=== PATIENT | male | born 1940 | race Caucasian/White ===

== ENCOUNTER 2021-11-11 02:38 | Emergency (ER) | payer MEDICARE, OTHER, SELFPAY ==
[2021-11-11 02:44] VITALS: BP 165/92; BP 173/84; PULSE 84; RESP 18; TEMP 37.1; O2SAT 98; BMI 29.7
--- NOTE | 2021-11-11 03:26 | ED_ITS ---
HPI - Male Genitourinary General Chief complaint: Urogenital-Male Stated complaint: unable to urinate Time Seen by Provider: 11/11/21 03:16 Source: patient and EMS Mode of arrival: EMS Limitations: no limitations History of Present Illness HPI Narrative: Patient comes to the emergency room complaining of 5 hours of being unable to urinate. Patient states that he was recently seen by his urologist, prescribed by urinary anti spasmodic (trospium). Patient states that he have suprapubic discomfort. Patient has been diagnosed with BPH, denies being on any blood thinners. Related Data Previous Rx's Medication Instructions Recorded tamsulosin 0.4 mg capsule (Flomax) 0.4 mg PO DAILY #7 caps 11/11/21 Allergies Allergy/AdvReac Type Severity Reaction Status Date / Time allopurinol [Allopurinol] Allergy Severe HIVES, rash Unverified 12/06/19 15:30 oxycodone [Oxycodone] AdvReac Intermediate NAUSEA & Unverified 12/06/19 15:30 VOMITING Review of Systems Review of Systems: Constitutional : No Weight loss, No Fever, No Chills, No Night Sweats, No Fatigue, No Malaise ENT/Mouth : No Hearing loss, No Ear Pain, No Nasal Congestion, No Sinus Pain, No Hoarseness, No sore throat, No Rhinorrhea, No Swallowing Difficulty Eyes: No Eye Pain, No Swelling, No Redness, No Foreign Body, No Discharge, No Vision Changes Cardiovascular : No Chest Pain, No SOB, No Dyspnea on Exertion, No Orthopnea, No Edema, No Palpitations Respiratory : No Cough, No Sputum, No Wheezing, No Smoke Exposure, No Dyspnea Gastrointestinal : No Nausea, No Vomiting, No Diarrhea, No Constipation, No abdominal Pain, No Hematochezia, No Melena Genitourinary : Complaining of urinary retention for 5 hours, No Dysuria, No Urinary Frequency, No Hematuria, No Urinary Incontinence, No Urgency, No Flank Pain, No Urinary Flow Changes, No Hesitancy Musculoskeletal : No joint pain, No Myalgias, No Joint Swelling Skin : No Skin Lesions, No rash Neuro : No Weakness, No Numbness, No Paresthesias, No Loss of Consciousness, No Dizziness, No Headache Psych : No Anxiety/Panic, No Depression, No SI/HI/AH/VH, No Social Issues, Heme/Lymph: No Bruising, No Bleeding,No Lymphadenopathy Endocrine : No Polyuria, No Polydipsia, No Temperature Intolerance [facility] Past Medical History Medical History (Updated 11/11/21 @ 03:29 by Stefania Chand MD) BPH (benign prostatic hyperplasia) Physical Exam Vital Signs: Vital Signs: Last Vital Signs Temp 98.7 F 11/11/21 02:44 Pulse 84 11/11/21 02:44 Resp 18 11/11/21 02:44 BP 165/92 H 11/11/21 02:44 Pulse Ox 98 11/11/21 02:44 O2 Del Method 11/11/21 02:44 BMI result Body Mass Index 29.7 Const: Other: Appearance: Alert. Oriented X3. No acute distress. Eyes: Pupils equal, round and reactive to light. ENT: Pharynx normal. Neck: Normal inspection. Neck supple. No lymph nodes noted. No crepitus CVS: Normal heart rate and rhythm. Pulses normal. Normal S1 and S2 Respiratory: No respiratory distress. Breath sounds normal. No Wheezing. No rales Abdomen: Soft and nontender. No rigidity. No distention. Bladder scan shows more than 800 mL of urine bladder Skin: Skin warm and dry. Normal skin color. Normal skin turgor. Extremities: No lower extremity edema. No Lacerations. No Rash Neuro: Oriented X 3. No motor deficit. No sensory deficit. Moving all extremities. No slurred speech. CN 2 through 12 grossly intact Psych: calm, cooperative, normal affect Course Course Course Narrative: López catheter was inserted. Martín blood started to come out, patient's bladder was manually irrigated with 2 L, the urine cleared. No UTI. I discussed with the patient that the López catheter needs to stay in for 2 days and he needs to follow-up with his urologist. MDM - Male Genitourinary Lab Data Labs: Lab Results 11/11/21 Range/Units 04:03 Urine Color RED Urine Appearance Cloudy Urine pH 8.0 (5.0-8.0) Ur Specific [place] 1.015 (1.005-1.025) Urine Protein 300 (3+) H (Neg-Trace) mg/dL Urine Glucose (UA) Negative (Negative) mg/dL Urine Ketones 15 (Negative) mg/dL Urine Blood Large (3+) H (Negative) Urine Nitrite Negative (Negative) Ur Leukocyte Esterase Small (1+) H (Negative) Urine RBC >20 H (0-2) /HPF Urine WBC 0-5 (0-5) /HPF Ur Squamous Epith Cells 0-2 (0-2) /HPF Urine Bacteria 1+ (None Seen) Hyaline Casts Not Reportable Discharge Plan Discharge Clinical Impression: Acute urinary retention Patient Disposition: Home, Self-Care Instructions: Urinary Retention in Men (ED) Additional Instructions: Your López catheter needs to be removed in 48 hours. You may come to the emergency room to have it removed, or ideally, follow-up with your urologist. Please follow-up with your primary care physician tomorrow. If you have any worsening or new symptoms, please return to the emergency room or call 911 Prescriptions: New tamsulosin [Flomax] 0.4 mg capsule 0.4 mg PO DAILY Qty: 7 0RF
--- NOTE | 2021-11-11 03:46 | PC.NURSE ---
Patient arrived to ED [facility] in a stretcher bed. patient reports he was not able to urinate since 10 pm. Patient complaining feeling distention and discomfort in suprapubic area. patient reports he started taking Oxybutynin 20 mg daily few days ago-prescribed by Dr. Kirkpatrick-urologist. Pt's bladder scanned-revealed 892 mL of urine in pt's bladder. F/C [address] Chand order-balloon inflated with 10 ml of sterile water-bright, red blood noted flowing into F/C bag after balloon inflation. Dr. Chand notified-MD performed F/C irrigation at bedside with light, pink urine return noted.
[2021-11-11 04:16] LABS: Appearance Urine Cloudy; Glucose Urine UA Negative (Negative); Leukocyte Esterase Urine Small (1+) (Negative); Specific Gravity - Urine 1.015 (1.005-1.025); Urine Blood Large (3+) (Negative); Urine Ketones 15 mg/dL (Negative); Urine Protein 300 (3+) mg/dL (Neg-Trace)
[2021-11-11 04:20] LABS: Color Urine RED
[2021-11-11 04:21] LABS: Nitrite Urine Negative (Negative)
[2021-11-11 04:22] LABS: Bacteria Urine 1+ (None Seen); RBC Urine >20 /HPF (0-2); Squamous Epithelial Cell Urine 0-2 /HPF (0-2); UACC Culture Trigger YES; WBC Urine 0-5 /HPF (0-5)
== END 2021-11-11 07:37 | disposition home or self-care (01) ==
PROVIDERS: Emergency Provider Emergency Medicine
DX: R33.9 Retention of urine, unspecified (principal)
CPT/HCPCS: 81001; 87086; 99284

== ENCOUNTER 2021-11-11 09:43 | Inpatient (IN) | payer MEDICARE, OTHER, SELFPAY ==
[2021-11-11 09:46] VITALS: BP 149/95; PULSE 100; RESP 19; TEMP 36.1; O2SAT 98; BMI 29.5
--- NOTE | 2021-11-11 14:53 | ED.MALEGU ---
HPI - Male Genitourinary General Chief complaint: Urogenital-Male Stated complaint: bleeding thru cathier Time Seen by Provider: 11/11/21 13:41 Source: patient Mode of arrival: ambulatory History of Present Illness HPI Narrative: 81-year-old male with a past medical history of BPH, urinary retention s/p López catheter placement yesterday presenting to the ED complaining of bleeding around López catheter and hematuria in bag. States has been bleeding since catheter insertion. Reports mild suprapubic discomfort and mild lightheadedness. Denies taking anticoagulation. Denies CP/SOB, nausea, vomiting, diarrhea, dysuria/hematuria Onset (ago): hour(s) Related Data Previous Rx's Medication Instructions Recorded tamsulosin 0.4 mg capsule (Flomax) 0.4 mg PO DAILY #7 caps 11/11/21 Allergies Allergy/AdvReac Type Severity Reaction Status Date / Time allopurinol [Allopurinol] Allergy Severe HIVES, rash Unverified 12/06/19 15:30 oxycodone [Oxycodone] AdvReac Intermediate NAUSEA & Unverified 12/06/19 15:30 VOMITING Review of Systems Review of Systems: Constitutional: No Fever, No Chills, No Fatigue, No Malaise ENT/Mouth: No Ear Pain, No Nasal Congestion, No sore throat, No Rhinorrhea, No Swallowing Difficulty Eyes: No Eye Pain, No Swelling, No Redness, No Vision Changes Cardiovascular: No Chest Pain, No SOB, No Edema, No Palpitations Respiratory: No Cough, No Sputum, No Dyspnea Gastrointestinal: No Nausea, No Vomiting, No Diarrhea, No Constipation, No Abdominal pain Genitourinary: No irregular bleeding, No Dysuria, No Urinary Frequency, No Hematuria, No Urinary Incontinence/retention, No Urgency, No Flank Pain, No Urinary Flow Changes, No Hesitancy Musculoskeletal: No joint pain, No Myalgias, No Joint Swelling Skin: No Skin Lesions, No rash Neuro: No Weakness, No Numbness, No Loss of Consciousness, +Mild lightheadedness, No Headache Yes all other systems are reviewed and are negative Constitutional: Constitutional: Reports as per [facility] Past Medical History Attestation statement: The following information was validated with the patient. Medical History (Updated 11/11/21 @ 18:21 by Hina Pouliot, PA) BPH (benign prostatic hyperplasia) Social History Social History Advance Directives: Yes Advance Directives Information Provided: Yes Advance Directives on File: No Physical Exam Vital Signs: Vital Signs: Last Vital Signs Temp 97.8 F 11/11/21 17:05 Pulse 79 11/11/21 17:05 Resp 14 11/11/21 17:05 BP 145/84 H 11/11/21 17:05 Pulse Ox 97 11/11/21 17:05 O2 Del Method 11/11/21 17:05 BMI result Body Mass Index 29.5 Const: General: cooperative, healthy appearing and no acute distress Orientation/consciousness: patient oriented x3 Limitations: no limitations HEENT: Head: Yes normal to inspection and Yes atraumatic Ears: hearing grossly normal bilaterally General nose exam: Normal external nose present Face and sinus: Yes normal facial exam Eyes: General: appearance normal, both eyes and all related structures EOM: EOMs intact bilaterally Neck: Neck: Yes normal visual inspection and Yes no meningeal signs Resp: Effort & Inspection: normal respiratory effort and no respiratory distress Cardio: Rate: regular rate Heart sounds: S1 normal heart sound present and S2 normal heart sound present GI: Inspection: Yes normal to inspection Palpation (GI): Soft to palpation, nontender, no guarding and not rigid : Other: López catheter in place with bright red clots around catheter. Gross hematuria in bag General: Yes no CVA tenderness Back/Spine/Pelvis: Back: no CVA tenderness Skin: Rashes: no rashes Wounds: no wounds Neuro: General: patient oriented x3, tone normal and no meningeal signs Gait exam (Neuro): Normal gait present Extrem: General: Yes normal to inspection Course Course Course Narrative: -[id number]--about 1200 cc of bladder irrigation in with 1600 mL output of maycol hematuria. Small amount of maycol bloody discharge around López catheter >> case d/w Dr. Horne who will eval patient in the ED -Dr. Horne was able to clear López with manual irrigation. Recommended patient could be discharged after CBI completed if workup unremarkable -noted leukocytosis of 16.9 with slight left shift. BUN acute on chronically elevated to 25. CPK minimally elevated to 184 -UA appears infected > will empirically cover with IV Rocephin. Due to patient's initial tachycardia and elevated WBC count will obtain lactic and blood cultures. Lower suspicion for severe sepsis at this time. Plan to admit for further management MDM - Male Genitourinary MDM Narrative Medical decision making narrative: 81-year-old male with a past medical history of BPH, urinary retention s/p López catheter placement yesterday presenting to the ED complaining of bleeding around López catheter and hematuria in bag. On exam vital signs stable, mildly tachycardic with a heart rate of 100, NAD/nontoxic appearing, abdomen soft/nontender, López catheter in place with urethral clots and gross hematuria noted. Zero cc on bladder scan. Bladder was manually irrigated with 40 cc x3, urine cleared. Consult to Dr. Horne who recommended [address] and 30 cc balloon Concern for UTI vs anemia Plan: Labs, UA, +/- CBI Differential Diagnosis Differential diagnosis: Likely urinary tract infection and acute retention of urine Medical Records Attestation: I reviewed the patient's medical records. Lab Data Attestation: I reviewed the patient's lab results. Result diagrams: 11/11/21 16:37 11/11/21 16:37 Labs: Lab Results 11/11/21 11/11/21 11/11/21 Range/Units 16:28 16:37 16:37 WBC 16.9 H (4.8-10.8) X10*3/uL RBC 5.36 (4.60-5.80) X10*6/uL Hgb 16.6 (14.0-18.0) g/dl Hct 48.5 (42.0-52.0) % MCV 90.5 (80.0-98.0) fL MCH 31.0 (27.0-33.0) pg MCHC 34.2 (31.0-36.0) g/dl RDW 12.5 (11.0-16.0) % Plt Count 232 (160-400) X10*3/uL MPV 11.2 (9.4-12.4) fL Immature Gran % (Auto) 0.7 H (0.0-0.4) % Neut % (Auto) 82.5 H (45-73) % Lymph % (Auto) 9.5 L (20-40) % [place] % (Auto) 7.0 (2-11) % Eos % (Auto) 0.1 (0-4) % Baso % (Auto) 0.2 (0-2) % Lymph # (Auto) 1.6 (1.2-4.9) X10*3/uL [place] # (Auto) 1.2 (0.1-1.2) X10*3/uL Eos # (Auto) 0.0 (0.0-0.4) X10*3/uL Baso # (Auto) 0.0 (0.0-0.2) X10*3/uL Abs Immat Gran (auto) 0.11 H (0.00-0.03) X10*3/uL Absolute Neuts (auto) 13.9 H (2.0-8.3) x10*3/uL Absolute Nucleated RBC 0.000 (0.0-0.012) X10*3/uL Nucleated RBC % (auto) 0.0 (0.0-0.2) /100WBC PT 11.8 (10.0-13.1) SEC INR 1.0 (0.9-1.1) APTT 31.9 (26.0-36.4) SEC Sodium (135-145) mmol/L Potassium (3.3-5.1) mmol/L Chloride (96-108) mmol/L Carbon Dioxide (22-29) mmol/L Anion Gap (12-20) BUN (9-16) mg/dL Creatinine (0.5-1.4) mg/dL Estim Creat Clear Calc Estimated GFR Random Glucose (60-115) mg/dL Calcium (8.4-10.2) mg/dL Total Creatine Kinase (38-174) U/L Urine Color Red A Urine Appearance Clear Urine pH 5.5 (5.0-8.0) Ur Specific [place] <= 1.005 (1.005-1.025) Urine Protein 30 (1+) H (Neg-Trace) mg/dL Urine Glucose (UA) Negative (Negative) mg/dL Urine Ketones 15 (Negative) mg/dL Urine Blood Large (3+) H (Negative) Urine Nitrite Negative (Negative) Ur Leukocyte Esterase Trace H (Negative) Urine RBC >20 H (0-2) /HPF Urine WBC 6-10 H (0-5) /HPF Ur Squamous Epith Cells 0-2 (0-2) /HPF Urine Bacteria None Seen (None Seen) Hyaline Casts 0-2 (0-2) /LPF COVID-19 (IVÁN) (Negative) COVID-19 Clin Com 11/11/21 11/11/21 11/11/21 Range/Units 16:37 16:37 17:01 WBC (4.8-10.8) X10*3/uL RBC (4.60-5.80) X10*6/uL Hgb (14.0-18.0) g/dl Hct (42.0-52.0) % MCV (80.0-98.0) fL MCH (27.0-33.0) pg MCHC (31.0-36.0) g/dl RDW (11.0-16.0) % Plt Count (160-400) X10*3/uL MPV (9.4-12.4) fL Immature Gran % (Auto) (0.0-0.4) % Neut % (Auto) (45-73) % Lymph % (Auto) (20-40) % [place] % (Auto) (2-11) % Eos % (Auto) (0-4) % Baso % (Auto) (0-2) % Lymph # (Auto) (1.2-4.9) X10*3/uL [place] # (Auto) (0.1-1.2) X10*3/uL Eos # (Auto) (0.0-0.4) X10*3/uL Baso # (Auto) (0.0-0.2) X10*3/uL Abs Immat Gran (auto) (0.00-0.03) X10*3/uL Absolute Neuts (auto) (2.0-8.3) x10*3/uL Absolute Nucleated RBC (0.0-0.012) X10*3/uL Nucleated RBC % (auto) (0.0-0.2) /100WBC PT (10.0-13.1) SEC INR (0.9-1.1) APTT (26.0-36.4) SEC Sodium 141 (135-145) mmol/L Potassium 4.5 (3.3-5.1) mmol/L Chloride 102 (96-108) mmol/L Carbon Dioxide 24 (22-29) mmol/L Anion Gap 20 (12-20) BUN 25 H (9-16) mg/dL Creatinine 1.17 (0.5-1.4) mg/dL Estim Creat Clear Calc 56.0 Estimated GFR 60 Random Glucose 101 (60-115) mg/dL Calcium 9.5 (8.4-10.2) mg/dL Total Creatine Kinase 184 H Cancelled (38-174) U/L Urine Color Urine Appearance Urine pH (5.0-8.0) Ur Specific [place] (1.005-1.025) Urine Protein (Neg-Trace) mg/dL Urine Glucose (UA) (Negative) mg/dL Urine Ketones (Negative) mg/dL Urine Blood (Negative) Urine Nitrite (Negative) Ur Leukocyte Esterase (Negative) Urine RBC (0-2) /HPF Urine WBC (0-5) /HPF Ur Squamous Epith Cells (0-2) /HPF Urine Bacteria (None Seen) Hyaline Casts (0-2) /LPF COVID-19 (IVÁN) Negative (Negative) COVID-19 Clin Com See Note Discharge Plan Discharge Clinical Impression: Urinary tract infection, Gross hematuria Patient Disposition: Admitted As Inpatient
[2021-11-11 16:43] LABS: MANUAL DIFF FLAG NO
[2021-11-11 16:46] LABS: Basophils Percent Auto 0.2 % (0-2); Eosinophils Percent Auto 0.1 % (0-4); Hematocrit 48.5 % (42.0-52.0); Hemoglobin 16.6 g/dl (14.0-18.0); Imm Gran Abs Auto 0.11 X10*3/uL (0.00-0.03); Imm Gran Pct Auto 0.7 % (0.0-0.4); Lymphocytes Absolute Auto 1.6 X10*3/uL (1.2-4.9); Lymphocytes Percent Auto 9.5 % (20-40); Mean Corpuscular HGB Conc 34.2 g/dl (31.0-36.0); Mean Corpuscular Volume 90.5 fL (80.0-98.0); Mean Platelet Volume 11.2 fL (9.4-12.4); Monocytes Absolute Auto 1.2 X10*3/uL (0.1-1.2); Neutrophils Absolute Auto 13.9 x10*3/uL (2.0-8.3); Neutrophils Percent Auto 82.5 % (45-73); Platelet Count 232 X10*3/uL (160-400); Red Blood Count 5.36 X10*6/uL (4.60-5.80); Red Cell Distribution Width 12.5 % (11.0-16.0); White Blood Count 16.9 X10*3/uL (4.8-10.8)
[2021-11-11 16:55] LABS: Prothrombin Time 11.8 SEC (10.0-13.1)
[2021-11-11 16:57] LABS: Partial Thromboplastin Time 31.9 SEC (26.0-36.4)
[2021-11-11 16:58] LABS: Appearance Urine Clear; Color Urine Red; Glucose Urine UA Negative (Negative); Leukocyte Esterase Urine Trace (Negative); Nitrite Urine Negative (Negative); PH 5.5 (5.0-8.0); Specific Gravity - Urine <= 1.005 (1.005-1.025); Urine Blood Large (3+) (Negative); Urine Ketones 15 mg/dL (Negative); Urine Protein 30 (1+) mg/dL (Neg-Trace)
[2021-11-11 16:59] LABS: Bacteria Urine None Seen (None Seen); Hyaline Casts Urine 0-2 /LPF (0-2); RBC Urine >20 /HPF (0-2); Squamous Epithelial Cell Urine 0-2 /HPF (0-2); UACC Culture Trigger YES
[2021-11-11 17:05] VITALS: BP 145/84; PULSE 79; RESP 14; TEMP 36.6; O2SAT 97
[2021-11-11 17:05] LABS: Anion Gap 20 (12-20); Blood Urea Nitrogen 25 mg/dL (9-16); Calcium 9.5 mg/dL (8.4-10.2); Carbon Dioxide 24 mmol/L (22-29); Chloride 102 mmol/L (96-108); Estimated Glomerular Filt Rate 60; Glucose Random 101 mg/dL (60-115); Potassium 4.5 mmol/L (3.3-5.1); Sodium 141 mmol/L (135-145)
[2021-11-11 17:38] LABS: COVID-19 Test Negative (Negative)
[2021-11-11 18:25] LABS: Lactic Acid 1.3 mmol/L (0.5-2.0)
--- NOTE | 2021-11-11 18:34 | PHA.MEDREC ---
Pharmacy Consult ? Medication Reconciliation Pharmacy has completed the medication reconciliation. Spoke to patient in person. Of note: patient states the flomax has not been started yet, patient has it waiting at pharmacy to be picked up.
[2021-11-11] MEDS: cefTRIAXone sodium 1 GM in 0.9 % Sodium Chloride 50 ML IV (19:00)
[2021-11-11] MEDS: 0.9 % Sodium Chloride 1,000 ML 999 ML IV (19:02)
[2021-11-11] MEDS: Tamsulosin HCL 0.4 MG CAPSULE PO (20:43)
[2021-11-11] MEDS: amLODIPine Besylate 5 MG TABLET PO (20:43)
[2021-11-11 20:48] VITALS: BP 143/81; PULSE 76; RESP 16; O2SAT 96
[2021-11-11] MEDS: Lactated Ringers 1,000 ML 100 ML IVCONT (22:08)
--- NOTE | 2021-11-11 22:43 | PM.IMHP ---
History of Present Illness Date of Service: 11/11/21 Chief Complaint: Hematuria and blood around catheterization This is an 81-year-old male past medical history of BPH, and hypertension who initially presented to the hospital on 08:24 with urinary retention after being started on trospium for his nocturia and urinary frequency. At that time patient was evaluated in the ED, found to have no UTI, a Elizabeth catheter was successfully placed and patient was discharged home to follow-up outpatient with Urology. Patient returns to the hospital stating that he had constant bleeding from around the catheter, and some blood intermittently through the catheter itself and into the cath sack. Patient currently denies any fever, no chest pain, no shortness of breath, no headache or change in vision, has some chill. Reports that prior to his presentation with retention he had no dysuria. He reports that he noticed retention few nights prior but it was not constant, he was able to pee several times after. He denies any abdominal pain nausea or vomiting, no diarrhea constipation, no lower extremity edema On arrival to the ED patient's vitals are significant for a blood pressure of 149/95 otherwise unremarkable Labs are significant for WBC count of 16.9, otherwise unremarkable, UA showed large amount of blood as well as WBC, leukocyte Estrace. Patient started on CBI, evaluated by Urology, recommended outpatient follow-up for his urinary retention. But given his UTI elevated leukocytosis patient was deemed appropriate for admission for IV antibiotics Review of Systems Review of Systems: Yes all other systems are reviewed and are negative [facility] Medical History (Updated 11/12/21 @ 00:27 by Sergio Day MD) BPH (benign prostatic hyperplasia) GERD (gastroesophageal reflux disease) Hypertension Family History (Updated 11/12/21 @ 00:23 by Sergio Day MD) Other No family history of coronary artery disease Surgical History (Updated 11/12/21 @ 00:23 by Sergio Day MD) No pertinent past surgical history Social History (Updated 11/12/21 @ 00:23 by Sergio Day MD) Alcohol intake: current Patient Tobacco Use Status: Former Tobacco user Use of substances other than those prescribed or required for medical reasons: No Advance Directives: Yes Advance Directives Information Provided: Yes Advance Directives on File: No Meds Allergies Allergy/AdvReac Type Severity Reaction Status Date / Time allopurinol [Allopurinol] Allergy Severe HIVES, rash Verified 11/11/21 19:00 oxycodone [Oxycodone] AdvReac Intermediate NAUSEA & Verified 11/11/21 19:57 VOMITING Active Medications: Current Medications Acetaminophen (Acetaminophen 325 Mg Tablet) 650 mg PO Q6H PRN PRN Reason: Pain, Mild (Pain Scale 1-3) Amlodipine Besylate (Amlodipine Besylate 5 Mg Tablet) 5 mg PO DAILY [facility]; Protocol Last Admin: 11/11/21 20:43 Dose: 5 mg Docusate Sodium (Docusate Sodium 100 Mg Capsule) 100 mg PO DAILY PRN PRN Reason: Constipation Lactated Ringer's (Lr) 1,000 mls @ 100 mls/hr IVCONT .Q10H [facility] Last Admin: 11/11/21 22:08 Dose: 100 mls/hr Ceftriaxone Sodium 1 gm/ (Sodium Chloride) 50 mls @ 100 mls/hr IV Q24H [facility] Multivitamins/Vitamin C (Multivitamin Tablet) 1 tab PO DAILY [facility] Non-Formulary Medication (Febuxostat) 1 tab PO DAILY [facility] Omeprazole (Omeprazole 20 Mg Capsule.Dr) 20 mg PO DAILY@0630 [facility] Ondansetron HCl (Ondansetron Hcl 4 Mg/2 Ml Vial) 4 mg IVPUSH Q8H PRN PRN Reason: Nausea and Vomiting Pharmacy Consult (Consult Rx Perform Med Rec) 1 each MISCELLANE ONCE PRN PRN Reason: Consult order Pravastatin Sodium (Pravastatin Sodium 20 Mg Tablet) 20 mg PO DAILY [facility] Sodium Chloride (0.9 % Sodium Chloride Flush 3 Ml Syringe) 3 ml IVFLUSH QSHIFT [facility] Tamsulosin HCl (Tamsulosin Hcl 0.4 Mg Capsule) 0.4 mg PO DAILY [facility] Last Admin: 11/11/21 20:43 Dose: 0.4 mg Vitamin D (Cholecalciferol (Vitamin D3) 10 Mcg Tablet) 10 mcg PO DAILY [facility] Home Medications Medication Instructions Recorded Confirmed Last Taken Type amlodipine 5 mg tablet 1 tab PO DAILY 11/11/21 11/11/21 Unknown History cholecalciferol (vitamin D3) 10 10 mcg PO DAILY 11/11/21 11/11/21 Unknown History mcg (400 unit) capsule (Vitamin D3) febuxostat 40 mg tablet 1 tab PO DAILY 11/11/21 11/11/21 Unknown History multivitamin 1 tab PO DAILY 11/11/21 11/11/21 Unknown History omeprazole 20 mg capsule,delayed 1 cap PO DAILY 11/11/21 11/11/21 Unknown History release pravastatin 20 mg tablet 1 tab PO DAILY 11/11/21 11/11/21 Unknown History trospium 20 mg tablet 1 tab PO DAILY PRN Incontinence 11/11/21 11/11/21 Unknown History Physical Exam Vital Signs and Narrative: Vital Signs: Last Vital Signs Temp 97.8 F 11/11/21 17:05 Pulse 76 11/11/21 20:48 Resp 16 11/11/21 20:48 BP 143/81 H 11/11/21 20:48 Pulse Ox 96 11/11/21 20:48 O2 Del Method 11/11/21 20:48 BMI result Body Mass Index 29.5 Const: General: cooperative and no acute distress Orientation/consciousness: patient oriented x3 Eyes: General: appearance normal, both eyes and all related structures Resp: Effort & Inspection: normal respiratory effort Auscultation: clear to auscultation bilaterally Cardio: Rate: regular rate Rhythm: regular rhythm GI: Palpation (GI): Soft to palpation Auscultation: normal bowel sounds : Other: Clear of urine in CBI, no evidence of hematuria Skin: General skin exam: no rashes or lesions noted Neuro: General: patient oriented x3 Cognition (Neuro): normal cognition Extrem: General: Yes normal to inspection and Yes no pedal edema Results Labs CBC and Chem 7: 11/11/21 16:37 11/11/21 16:37 Labs: Laboratory Results - last 24 hr 11/11/21 11/11/21 11/11/21 16:05 16:28 16:37 MCV 90.5 MCH 31.0 MCHC 34.2 RDW 12.5 Plt Count 232 MPV 11.2 Immature Gran % (Auto) 0.7 H Neut % (Auto) 82.5 H Lymph % (Auto) 9.5 L Gila % (Auto) 7.0 Eos % (Auto) 0.1 Baso % (Auto) 0.2 Lymph # (Auto) 1.6 Gila # (Auto) 1.2 Eos # (Auto) 0.0 Baso # (Auto) 0.0 Abs Immat Gran (auto) 0.11 H Absolute Neuts (auto) 13.9 H Absolute Nucleated RBC 0.000 Nucleated RBC % (auto) 0.0 PT INR APTT Anion Gap Estim Creat Clear Calc Estimated GFR Random Glucose Lactic Acid 1.3 Calcium Total Creatine Kinase Urine Color Red A Urine Appearance Clear Urine pH 5.5 Ur Specific [place] <= 1.005 Urine Protein 30 (1+) H Urine Glucose (UA) Negative Urine Ketones 15 Urine Blood Large (3+) H Urine Nitrite Negative Ur Leukocyte Esterase Trace H Urine RBC >20 H Urine WBC 6-10 H Ur Squamous Epith Cells 0-2 Urine Bacteria None Seen Hyaline Casts 0-2 COVID-19 (IVÁN) COVID-19 Clin Com 11/11/21 11/11/21 11/11/21 16:37 16:37 16:37 MCV MCH MCHC RDW Plt Count MPV Immature Gran % (Auto) Neut % (Auto) Lymph % (Auto) Gila % (Auto) Eos % (Auto) Baso % (Auto) Lymph # (Auto) Gila # (Auto) Eos # (Auto) Baso # (Auto) Abs Immat Gran (auto) Absolute Neuts (auto) Absolute Nucleated RBC Nucleated RBC % (auto) PT 11.8 INR 1.0 APTT 31.9 Anion Gap 20 Estim Creat Clear Calc 56.0 Estimated GFR 60 Random Glucose 101 Lactic Acid Calcium 9.5 Total Creatine Kinase 184 H Cancelled Urine Color Urine Appearance Urine pH Ur Specific [place] Urine Protein Urine Glucose (UA) Urine Ketones Urine Blood Urine Nitrite Ur Leukocyte Esterase Urine RBC Urine WBC Ur Squamous Epith Cells Urine Bacteria Hyaline Casts COVID-19 (IVÁN) COVID-19 Clin Com 11/11/21 17:01 MCV MCH MCHC RDW Plt Count MPV Immature Gran % (Auto) Neut % (Auto) Lymph % (Auto) Gila % (Auto) Eos % (Auto) Baso % (Auto) Lymph # (Auto) Gila # (Auto) Eos # (Auto) Baso # (Auto) Abs Immat Gran (auto) Absolute Neuts (auto) Absolute Nucleated RBC Nucleated RBC % (auto) PT INR APTT Anion Gap Estim Creat Clear Calc Estimated GFR Random Glucose Lactic Acid Calcium Total Creatine Kinase Urine Color Urine Appearance Urine pH Ur Specific [place] Urine Protein Urine Glucose (UA) Urine Ketones Urine Blood Urine Nitrite Ur Leukocyte Esterase Urine RBC Urine WBC Ur Squamous Epith Cells Urine Bacteria Hyaline Casts COVID-19 (IVÁN) Negative COVID-19 Clin Com See Note Assessment and Plan (1) Urinary tract infection: Status: Acute (2) Gross hematuria: Status: Acute (3) Urinary retention: Status: Acute Plan 81-year-old male with past medical history of BPH who initially presents to the hospital with urinary retention status post Elizabeth catheter placement returns to the hospital couple hours later with complaints of hematuria and blood around the bladder. Patient was started on CBI but was discovered to have UTI therefore will be admitted for IV antibiotics # acute UTI - likely in the setting of Elizabeth catheter insertion - given the Elizabeth catheter in place, will admit for IV antibiotics, pending urine cultures # urinary retention - likely secondary to starting trospium in light of BPH - will hold Trospium - elizabeth cath in place - follow urology op # hypertension - elevated - continue home medications # BPH - will continue tamsulosin - Elizabeth catheter in place - fall urology - hold trospium DVT prophylaxis: SCDs Quality Stroke Does the patient have a stroke diagnosis?: No VTE Prior VTE?: No VTE Risk Level:: Medical - moderate - high VTE Device Contraindication: N/A - Device Ordered VTE Drug Contraindication: Treatment Not Indicated
[2021-11-11 23:31] VITALS: BP 143/80; PULSE 78; RESP 16; O2SAT 95
--- NOTE | 2021-11-12 05:21 | PC.NURSE ---
per hospitalist stopped pt's continuous bladder irrigation. pt did have a moderate amount of dried blood around elizabeth catheter placement. notified. pt output 2400ml of urine via elizabeth
[2021-11-12 05:29] VITALS: BP 132/87; PULSE 79; RESP 16; TEMP 36.6; O2SAT 95
[2021-11-12] MEDS: 0.9 % Sodium Chloride Flush 3 ML SYRINGE IVFLUSH ×2 (06:09→20:54)
[2021-11-12] MEDS: Omeprazole 20 MG CAPSULE.DR PO (06:31)
[2021-11-12 07:01] LABS: MANUAL DIFF FLAG NO
[2021-11-12 07:08] LABS: Basophils Percent Auto 0.3 % (0-2); Eosinophils Absolute Auto 0.1 X10*3/uL (0.0-0.4); Eosinophils Percent Auto 0.9 % (0-4); Hematocrit 45.9 % (42.0-52.0); Hemoglobin 15.6 g/dl (14.0-18.0); Imm Gran Pct Auto 0.9 % (0.0-0.4); Lymphocytes Percent Auto 17.3 % (20-40); Mean Corpuscular Hemoglobin 30.5 pg (27.0-33.0); Mean Corpuscular Volume 89.6 fL (80.0-98.0); Mean Platelet Volume 11.2 fL (9.4-12.4); Monocytes Absolute Auto 1.1 X10*3/uL (0.1-1.2); Monocytes Percent Auto 9.8 % (2-11); Neutrophils Absolute Auto 8.2 x10*3/uL (2.0-8.3); Neutrophils Percent Auto 70.8 % (45-73); Platelet Count 205 X10*3/uL (160-400); Red Blood Count 5.12 X10*6/uL (4.60-5.80); Red Cell Distribution Width 12.4 % (11.0-16.0); White Blood Count 11.6 X10*3/uL (4.8-10.8)
[2021-11-12 07:24] LABS: Anion Gap 16 (12-20); Blood Urea Nitrogen 18 mg/dL (9-16); Carbon Dioxide 19 mmol/L (22-29); Chloride 106 mmol/L (96-108); Creatinine Clr Calc Pharmacy 69.7; Estimated Glomerular Filt Rate > 60; Glucose Random 114 mg/dL (60-115); Potassium 4.3 mmol/L (3.3-5.1); Sodium 137 mmol/L (135-145)
[2021-11-12 07:33] LABS: Calcium 8.4 mg/dL (8.4-10.2)
[2021-11-12] MEDS: Lactated Ringers 1,000 ML 100 ML IVCONT (07:35)
[2021-11-12 09:02] VITALS: BP 145/84; PULSE 72; RESP 16; O2SAT 95
[2021-11-12] MEDS: Pravastatin Sodium 20 MG TABLET PO (09:47)
[2021-11-12] MEDS: Tamsulosin HCL 0.4 MG CAPSULE PO (09:47)
[2021-11-12] MEDS: amLODIPine Besylate 5 MG TABLET PO (09:47)
[2021-11-12] MEDS: Multivitamin TABLET 1 TAB PO (09:47)
[2021-11-12] MEDS: Cholecalciferol (Vitamin D3) 10 MCG TABLET PO (10:30)
--- NOTE | 2021-11-12 11:51 | MHC.CM.PN ---
PT REPORTS HE LIVES WITH HIS WHO HAS DEMENTIA HE SAYS SHE HAS THE [employer] BUT HE ALSO PROVIDES MUCH OF HER CARE HE DOES EXPRESS SOME CONCERN REGARDING GETTING HOME TO ASSIST HER, BUT ALSO WANTS TO ENSURE HE IS MEDICALLY CLEARED PT REPORTS HE HAS NO SERVICES FOR HIMSELF AT HOME AND USES NO DME PT REPORTS HE IS COVID VACCINATED WITH MODERNA X 4 PT HAS A HCP ON FILE, CM DID OFFER TO ASSIST PT WITH UPDATING DOCUMENT, BUT HE DECLINED PCP: MABEL MUNOZ IMM DELIVERED,L COPY SENT TO [facility] CURRENT DC PLAN IS HOME WITH NO SERVICES SON TO TRANSPORT
[2021-11-12] MEDS: Acetaminophen 325 MG TABLET 650 MG PO (12:03)
--- NOTE | 2021-11-12 15:11 | HO.PM.IMPN ---
Subjective Subjective Date of Service: 11/12/21 Interval History: episode of bleeding around the catheter when patient stood upright this morning. Seen by Dr. Horne. Review of Systems Denies chest pain Denies shortness of breath Denies nausea vomiting diarrhea Denies fever chills Physical Exam Vital Signs: Vital Signs: Last Vital Signs Temp 97.8 F 11/12/21 05:29 Pulse 72 11/12/21 09:02 Resp 16 11/12/21 09:02 BP 145/84 H 11/12/21 09:02 Pulse Ox 95 11/12/21 09:02 O2 Del Method 11/12/21 09:02 BMI result Body Mass Index 29.5 Const: Other: no acute issues Resp: Other: clear to auscultation bilaterally no rales rhonchi or wheezes Cardio: Other: no S4; positive S1-S2; no S3 murmurs rubs or gallops GI: Other: soft nontender nondistended normoactive bowel sounds : Other: López in place Extrem: Other: no edema Objective Data Active Medications Acetaminophen (Acetaminophen 325 Mg Tablet) 650 mg PO Q6H PRN PRN Reason: Pain, Mild (Pain Scale 1-3) Last Admin: 11/12/21 12:03 Dose: 650 mg Documented By: AZAR Amlodipine Besylate (Amlodipine Besylate 5 Mg Tablet) 5 mg PO DAILY [facility]; Protocol Last Admin: 11/12/21 09:47 Dose: 5 mg Documented By: AZAR Docusate Sodium (Docusate Sodium 100 Mg Capsule) 100 mg PO DAILY PRN PRN Reason: Constipation Lactated Ringer's (Lr) 1,000 mls @ 100 mls/hr IVCONT .Q10H [facility] Last Admin: 11/12/21 13:45 Dose: Not Given Documented By: JORGITO Non-Admin Reason: Physician Held Med Ceftriaxone Sodium 1 gm/ (Sodium Chloride) 50 mls @ 100 mls/hr IV Q24H [facility] Multivitamins/Vitamin C (Multivitamin Tablet) 1 tab PO DAILY [facility] Last Admin: 11/12/21 09:47 Dose: 1 tab Documented By: AZAR Non-Formulary Medication (Febuxostat) 1 tab PO DAILY [facility] Omeprazole (Omeprazole 20 Mg Cristiana.) 20 mg PO DAILY@0630 [facility] Last Admin: 11/12/21 06:31 Dose: 20 mg Documented By: ALEXANDER Ondansetron HCl (Ondansetron Hcl 4 Mg/2 Ml Vial) 4 mg IVPUSH Q8H PRN PRN Reason: Nausea and Vomiting Pharmacy Consult (Consult Rx Perform Med Rec) 1 each MISCELLANE ONCE PRN PRN Reason: Consult order Pravastatin Sodium (Pravastatin Sodium 20 Mg Tablet) 20 mg PO DAILY [facility] Last Admin: 11/12/21 09:47 Dose: 20 mg Documented By: AZAR Sodium Chloride (0.9 % Sodium Chloride Flush 3 Ml Syringe) 3 ml IVFLUSH QSHIFT [facility] Last Admin: 11/12/21 07:35 Dose: Not Given Documented By: JORGITO Non-Admin Reason: IV Running Tamsulosin HCl (Tamsulosin Hcl 0.4 Mg Capsule) 0.4 mg PO DAILY [facility] Last Admin: 11/12/21 09:47 Dose: 0.4 mg Documented By: AZAR Vitamin D (Cholecalciferol (Vitamin D3) 10 Mcg Tablet) 10 mcg PO DAILY [facility] Last Admin: 11/12/21 10:30 Dose: 10 mcg Documented By: AZAR Labs CBC & Chem 7: 11/12/21 06:28 11/12/21 06:28 Labs: Laboratory Results - last 24 hr 11/11/21 11/11/21 11/11/21 16:05 16:28 16:37 MCV 90.5 MCH 31.0 MCHC 34.2 RDW 12.5 Plt Count 232 MPV 11.2 Immature Gran % (Auto) 0.7 H Neut % (Auto) 82.5 H Lymph % (Auto) 9.5 L [place] % (Auto) 7.0 Eos % (Auto) 0.1 Baso % (Auto) 0.2 Lymph # (Auto) 1.6 [place] # (Auto) 1.2 Eos # (Auto) 0.0 Baso # (Auto) 0.0 Abs Immat Gran (auto) 0.11 H Absolute Neuts (auto) 13.9 H Absolute Nucleated RBC 0.000 Nucleated RBC % (auto) 0.0 PT INR APTT Anion Gap Estim Creat Clear Calc Estimated GFR Random Glucose Lactic Acid 1.3 Calcium Total Creatine Kinase Urine Color Red A Urine Appearance Clear Urine pH 5.5 Ur Specific [place]worth <= 1.005 Urine Protein 30 (1+) H Urine Glucose (UA) Negative Urine Ketones 15 Urine Blood Large (3+) H Urine Nitrite Negative Ur Leukocyte Esterase Trace H Urine RBC >20 H Urine WBC 6-10 H Ur Squamous Epith Cells 0-2 Urine Bacteria None Seen Hyaline Casts 0-2 COVID-19 (IV[facility]N) COVID-19 Clin Com 11/11/21 11/11/21 11/11/21 16:37 16:37 16:37 MCV MCH MCHC RDW Plt Count MPV Immature Gran % (Auto) Neut % (Auto) Lymph % (Auto) [place]royo % (Auto) Eos % (Auto) Baso % (Auto) Lymph # (Auto) [place] # (Auto) Eos # (Auto) Baso # (Auto) Abs Immat Gran (auto) Absolute Neuts (auto) Absolute Nucleated RBC Nucleated RBC % (auto) PT 11.8 INR 1.0 APTT 31.9 Anion Gap 20 Estim Creat Clear Calc 56.0 Estimated GFR 60 Random Glucose 101 Lactic Acid Calcium 9.5 Total Creatine Kinase 184 H Cancelled Urine Color Urine Appearance Urine pH Ur Specific [place] Urine Protein Urine Glucose (UA) Urine Ketones Urine Blood Urine Nitrite Ur Leukocyte Esterase Urine RBC Urine WBC Ur Squamous Epith Cells Urine Bacteria Hyaline Casts COVID-19 (IVÁN) COVID-19 Clin Com 11/11/21 11/12/21 11/12/21 17:01 06:28 06:28 MCV 89.6 MCH 30.5 MCHC 34.0 RDW 12.4 Plt Count 205 MPV 11.2 Immature Gran % (Auto) 0.9 H Neut % (Auto) 70.8 Lymph % (Auto) 17.3 L [place] % (Auto) 9.8 Eos % (Auto) 0.9 Baso % (Auto) 0.3 Lymph # (Auto) 2.0 [place] # (Auto) 1.1 Eos # (Auto) 0.1 Baso # (Auto) 0.0 Abs Immat Gran (auto) 0.10 H Absolute Neuts (auto) 8.2 Absolute Nucleated RBC 0.000 Nucleated RBC % (auto) 0.0 PT INR APTT Anion Gap 16 Estim Creat Clear Calc 69.7 Estimated GFR > 60 Random Glucose 114 Lactic Acid Calcium 8.4 D Total Creatine Kinase Urine Color Urine Appearance Urine pH Ur Specific [place] Urine Protein Urine Glucose (UA) Urine Ketones Urine Blood Urine Nitrite Ur Leukocyte Esterase Urine RBC Urine WBC Ur Squamous Epith Cells Urine Bacteria Hyaline Casts COVID-19 (IV[facility]N) Negative COVID-19 Clin Com See Note Assessment and Plan (1) Urinary tract infection: Status: Acute (2) Gross hematuria: Status: Acute (3) Hypertension: Status: Acute Plan 81-year-old male with past medical history of BPH who initially presents to the hospital with urinary retention status post López catheter placement returns to the hospital couple hours later with complaints of hematuria and blood around the bladder. Patient was started on CBI but was discovered to have UTI therefore will be admitted for IV antibiotics 1.Acute UTI - likely in the setting of López catheter insertion - continue ceftriaxone pending cultures 2.Urinary retention... hematuria likely related to prostate - seen by Dr. Horne, bedside procedure done - follow overnight 3.Hypertension - acceptable control - continue home medications DVT prophylaxis: SCDs requires ongoing hospitalization for treatment of hematuria status post López insertion Quality Stroke Does the patient have a stroke diagnosis?: No VTE Prior VTE?: No VTE Risk Level:: Medical - moderate - high VTE Device Contraindication: N/A - Device Ordered VTE Drug Contraindication: Treatment Not Indicated
[2021-11-12 18:09] VITALS: BP 149/85; PULSE 89; RESP 17; TEMP 36.8; O2SAT 92
[2021-11-12] MEDS: cefTRIAXone sodium 1 GM in 0.9 % Sodium Chloride 50 ML IV (20:45)
[2021-11-12 23:09] VITALS: BP 153/86; PULSE 72; RESP 16; TEMP 36.4; O2SAT 97
[2021-11-13 03:04] VITALS: BP 155/89; PULSE 73; RESP 16; TEMP 37.2; O2SAT 97
[2021-11-13 06:38] LABS: MANUAL DIFF FLAG NO
[2021-11-13 06:44] LABS: Basophils Absolute Auto 0.1 X10*3/uL (0.0-0.2); Basophils Percent Auto 0.5 % (0-2); Eosinophils Absolute Auto 0.4 X10*3/uL (0.0-0.4); Eosinophils Percent Auto 3.5 % (0-4); Hematocrit 46.3 % (42.0-52.0); Hemoglobin 15.8 g/dl (14.0-18.0); Imm Gran Abs Auto 0.08 X10*3/uL (0.00-0.03); Imm Gran Pct Auto 0.8 % (0.0-0.4); Lymphocytes Absolute Auto 2.2 X10*3/uL (1.2-4.9); Lymphocytes Percent Auto 20.6 % (20-40); Mean Corpuscular HGB Conc 34.1 g/dl (31.0-36.0); Mean Corpuscular Hemoglobin 30.7 pg (27.0-33.0); Mean Corpuscular Volume 90.1 fL (80.0-98.0); Mean Platelet Volume 11.1 fL (9.4-12.4); Monocytes Percent Auto 9.7 % (2-11); Neutrophils Absolute Auto 6.8 x10*3/uL (2.0-8.3); Neutrophils Percent Auto 64.9 % (45-73); Platelet Count 206 X10*3/uL (160-400); Red Blood Count 5.14 X10*6/uL (4.60-5.80); Red Cell Distribution Width 12.5 % (11.0-16.0); White Blood Count 10.4 X10*3/uL (4.8-10.8)
[2021-11-13 06:59] LABS: Alanine Aminotransferase 22 U/L (0-40); Albumin Level 3.6 g/dL (3.5-5.0); Alkaline Phosphatase 44 U/L (39-117); Anion Gap 15 (12-20); Aspartate Amino Transferase 20 U/L (5-37); Bilirubin Total 0.7 mg/dL (0.0-1.0); Blood Urea Nitrogen 25 mg/dL (9-16); Calcium 8.4 mg/dL (8.4-10.2); Carbon Dioxide 23 mmol/L (22-29); Chloride 106 mmol/L (96-108); Creatinine Clr Calc Pharmacy 48.9; Estimated Glomerular Filt Rate 51; Glucose Fasting 124 mg/dL (60-99); Potassium 4.4 mmol/L (3.3-5.1); Sodium 140 mmol/L (135-145); Total Protein 6.6 g/dL (6.5-8.0)
[2021-11-13 07:17] VITALS: BP 160/78; PULSE 67; RESP 20; TEMP 36.3; O2SAT 95
[2021-11-13] MEDS: Pravastatin Sodium 20 MG TABLET PO (08:19)
[2021-11-13] MEDS: Cholecalciferol (Vitamin D3) 10 MCG TABLET PO (08:19)
[2021-11-13] MEDS: 0.9 % Sodium Chloride Flush 3 ML SYRINGE IVFLUSH ×2 (08:19→20:03)
[2021-11-13] MEDS: Tamsulosin HCL 0.4 MG CAPSULE PO (08:20)
[2021-11-13] MEDS: amLODIPine Besylate 5 MG TABLET PO (08:20)
[2021-11-13] MEDS: Multivitamin TABLET 1 TAB PO (08:20)
[2021-11-13 11:27] VITALS: BP 158/90; PULSE 92; RESP 16; TEMP 36.8; O2SAT 95
--- NOTE | 2021-11-13 11:30 | MHC.CM.PN ---
Per ROUNDS discussion, Patient will be medically cleared for dc to home today, self care. Patient's Son will transport and last IMM addressed yesterday.
[2021-11-13] MEDS: Lactated Ringers 1,000 ML 100 ML IVCONT (12:55)
--- NOTE | 2021-11-13 14:23 | P.PNIM_ITS ---
Subjective Subjective Date of Service: 11/13/21 Interval History: still notes bleeding around catheter when ambulatory. Complains of black stool Review of Systems Denies chest pain Denies shortness of breath Denies nausea vomiting diarrhea Denies fever chills Physical Exam Vital Signs: Vital Signs: Last Vital Signs Temp 98.3 F 11/13/21 11:27 Pulse 92 11/13/21 11:27 Resp 16 11/13/21 11:27 BP 158/90 H 11/13/21 11:27 Pulse Ox 95 11/13/21 11:27 O2 Del Method 11/13/21 11:27 BMI result Body Mass Index 29.5 Const: Other: no acute issues Resp: Other: clear to auscultation bilaterally no rales rhonchi or wheezes Cardio: Other: no S4; positive S1-S2; no S3 murmurs rubs or gallops GI: Other: soft nontender nondistended normoactive bowel sounds : Other: López in place Extrem: Other: no edema Objective Data Active Medications Acetaminophen (Acetaminophen 325 Mg Tablet) 650 mg PO Q6H PRN PRN Reason: Pain, Mild (Pain Scale 1-3) Last Admin: 11/12/21 12:03 Dose: 650 mg Documented By: AZAR Amlodipine Besylate (Amlodipine Besylate 5 Mg Tablet) 5 mg PO DAILY [facility]; Protocol Last Admin: 11/13/21 08:20 Dose: 5 mg Documented By: PRAVEEN Docusate Sodium (Docusate Sodium 100 Mg Capsule) 100 mg PO DAILY PRN PRN Reason: Constipation Lactated Ringer's (Lr) 1,000 mls @ 100 mls/hr IVCONT .Q10H [facility] Last Admin: 11/13/21 12:55 Dose: 100 mls/hr Documented By: PRAVEEN Ceftriaxone Sodium 1 gm/ (Sodium Chloride) 50 mls @ 100 mls/hr IV Q24H [facility] Last Infusion: 11/12/21 21:20 Dose: 0 mls/hr Documented By: MARIETTA Multivitamins/Vitamin C (Multivitamin Tablet) 1 tab PO DAILY [facility] Last Admin: 11/13/21 08:20 Dose: 1 tab Documented By: PRAVEEN Non-Formulary Medication (Febuxostat) 1 tab PO DAILY [facility] Omeprazole (Omeprazole 20 Mg Capsule.) 20 mg PO DAILY@0630 [facility] Last Admin: 11/13/21 06:07 Dose: Not Given Documented By: WILBUR Non-Admin Reason: Patient Refused Ondansetron HCl (Ondansetron Hcl 4 Mg/2 Ml Vial) 4 mg IVPUSH Q8H PRN PRN Reason: Nausea and Vomiting Pharmacy Consult (Consult Rx Perform Med Rec) 1 each MISCELLANE ONCE PRN PRN Reason: Consult order Pravastatin Sodium (Pravastatin Sodium 20 Mg Tablet) 20 mg PO DAILY [facility] Last Admin: 11/13/21 08:19 Dose: 20 mg Documented By: PRAVEEN Sodium Chloride (0.9 % Sodium Chloride Flush 3 Ml Syringe) 3 ml IVFLUSH QSHIFT [facility] Last Admin: 11/13/21 08:19 Dose: 3 ml Documented By: PRAVEEN Tamsulosin HCl (Tamsulosin Hcl 0.4 Mg Capsule) 0.4 mg PO DAILY [facility] Last Admin: 11/13/21 08:20 Dose: 0.4 mg Documented By: PRAVEEN Vitamin D (Cholecalciferol (Vitamin D3) 10 Mcg Tablet) 10 mcg PO DAILY [facility] Last Admin: 11/13/21 08:19 Dose: 10 mcg Documented By: PRAVEEN Labs CBC & Chem 7: 11/13/21 06:08 11/13/21 06:08 Labs: Laboratory Results - last 24 hr 11/13/21 11/13/21 06:08 06:08 MCV 90.1 MCH 30.7 MCHC 34.1 RDW 12.5 Plt Count 206 MPV 11.1 Immature Gran % (Auto) 0.8 H Neut % (Auto) 64.9 Lymph % (Auto) 20.6 [place] % (Auto) 9.7 Eos % (Auto) 3.5 Baso % (Auto) 0.5 Lymph # (Auto) 2.2 [place] # (Auto) 1.0 Eos # (Auto) 0.4 Baso # (Auto) 0.1 Abs Immat Gran (auto) 0.08 H Absolute Neuts (auto) 6.8 Absolute Nucleated RBC 0.000 Nucleated RBC % (auto) 0.0 Anion Gap 15 Estim Creat Clear Calc 48.9 Estimated GFR 51 Fasting Glucose 124 H Calcium 8.4 Total Bilirubin 0.7 AST 20 ALT 22 Alkaline Phosphatase 44 Total Protein 6.6 Albumin 3.6 Microbiology Microbiology Results: Microbiology 11/11/21 16:05 Blood Culture - Preliminary Blood - Venous No growth after 24 hours. 11/11/21 16:00 Blood Culture - Preliminary Blood - Venous No growth after 24 hours. Assessment and Plan (1) Urinary retention: Status: Acute (2) Hypertension: Status: Acute (3) Black stool: Status: Acute Plan 81-year-old male with past medical history of BPH who initially presents to the hospital with urinary retention status post López catheter placement returns to the hospital couple hours later with complaints of hematuria and blood around the bladder. Patient was started on CBI but was discovered to have UTI therefore will be admitted for IV antibiotics 1.Dark stool - FOB 2.Urinary retention... hematuria likely related to prostate - seen by Dr. Horne, bedside procedure done... still with bleeding this a.m. - follow overnight 3.Hypertension - acceptable control - continue home medications DVT prophylaxis: SCDs requires ongoing hospitalization for treatment of hematuria status post López insertion Quality Stroke Does the patient have a stroke diagnosis?: No VTE Prior VTE?: No VTE Risk Level:: Medical - moderate - high VTE Device Contraindication: N/A - Device Ordered VTE Drug Contraindication: Treatment Not Indicated
[2021-11-13 15:26] VITALS: BP 152/87; PULSE 97; RESP 20; TEMP 36.1; O2SAT 94
[2021-11-13] MEDS: cefTRIAXone sodium 1 GM in 0.9 % Sodium Chloride 50 ML IV (19:59)
[2021-11-13 20:00] VITALS: BP 139/80; PULSE 81; RESP 20; TEMP 36.5; O2SAT 95
[2021-11-13] MEDS: Acetaminophen 325 MG TABLET 650 MG PO (22:59)
[2021-11-13 23:38] VITALS: BP 145/85; PULSE 66; RESP 20; TEMP 36.1; O2SAT 96
[2021-11-14 03:05] VITALS: BP 133/78; PULSE 61; RESP 20; TEMP 36.6; O2SAT 93
[2021-11-14] MEDS: Omeprazole 20 MG CAPSULE.DR PO (05:56)
[2021-11-14 06:38] LABS: MANUAL DIFF FLAG NO
[2021-11-14 06:48] LABS: Basophils Absolute Auto 0.1 X10*3/uL (0.0-0.2); Basophils Percent Auto 0.6 % (0-2); Eosinophils Absolute Auto 0.6 X10*3/uL (0.0-0.4); Eosinophils Percent Auto 6.1 % (0-4); Hematocrit 43.9 % (42.0-52.0); Hemoglobin 15.1 g/dl (14.0-18.0); Lymphocytes Absolute Auto 2.2 X10*3/uL (1.2-4.9); Lymphocytes Percent Auto 22.1 % (20-40); Mean Corpuscular HGB Conc 34.4 g/dl (31.0-36.0); Mean Corpuscular Hemoglobin 30.8 pg (27.0-33.0); Mean Corpuscular Volume 89.6 fL (80.0-98.0); Mean Platelet Volume 11.3 fL (9.4-12.4); Monocytes Percent Auto 10.4 % (2-11); Neutrophils Absolute Auto 5.9 x10*3/uL (2.0-8.3); Neutrophils Percent Auto 59.8 % (45-73); Platelet Count 221 X10*3/uL (160-400); Red Cell Distribution Width 12.6 % (11.0-16.0); White Blood Count 9.8 X10*3/uL (4.8-10.8)
[2021-11-14 07:06] LABS: Alanine Aminotransferase 25 U/L (0-40); Albumin Level 3.5 g/dL (3.5-5.0); Alkaline Phosphatase 41 U/L (39-117); Anion Gap 16 (12-20); Aspartate Amino Transferase 23 U/L (5-37); Bilirubin Total 0.9 mg/dL (0.0-1.0); Blood Urea Nitrogen 21 mg/dL (9-16); Calcium 8.4 mg/dL (8.4-10.2); Carbon Dioxide 22 mmol/L (22-29); Chloride 104 mmol/L (96-108); Estimated Glomerular Filt Rate > 60; Glucose Fasting 123 mg/dL (60-99); Potassium 4.4 mmol/L (3.3-5.1); Sodium 138 mmol/L (135-145); Total Protein 6.4 g/dL (6.5-8.0)
[2021-11-14 07:24] VITALS: BP 132/82; PULSE 62; RESP 20; TEMP 37.1; O2SAT 94
[2021-11-14] MEDS: Cholecalciferol (Vitamin D3) 10 MCG TABLET PO (09:52)
[2021-11-14] MEDS: Multivitamin TABLET 1 TAB PO (09:52)
[2021-11-14] MEDS: Pravastatin Sodium 20 MG TABLET PO (09:53)
[2021-11-14] MEDS: amLODIPine Besylate 5 MG TABLET PO (09:53)
[2021-11-14] MEDS: Tamsulosin HCL 0.4 MG CAPSULE PO (09:53)
[2021-11-14] MEDS: 0.9 % Sodium Chloride Flush 3 ML SYRINGE IVFLUSH (09:53)
[2021-11-14 11:52] VITALS: BP 156/88; PULSE 75; RESP 20; TEMP 36.3; O2SAT 97
--- NOTE | 2021-11-14 13:08 | PM.DS ---
DS: Providers Provider Date of Service: 11/14/21 Date of admission: 11/11/21 19:58 Date of discharge: 11/14/21 Primary care physician: Festus Vega III, MD DS: Diagnosis Discharge Diagnosis (1) Urinary retention: Status: Acute (2) Hypertension: Status: Acute (3) Black stool: Status: Acute DS: Summary Hospital Course Hospital Course: 81-year-old male past medical history of BPH, and hypertension who initially presented to the hospital on 08:24 with urinary retention after being started on trospium for his nocturia and urinary frequency.? At that time patient was evaluated in the ED, found to have no UTI, a López catheter was successfully placed and patient was discharged home to follow-up outpatient with Urology.? Patient returns to the hospital stating that he had constant bleeding from around the catheter, and some blood intermittently through the catheter itself and into the cath sack.? Patient currently denies any fever, no chest pain, no shortness of breath, no headache or change in vision, has some chill.? Reports that prior to his presentation with retention he had no dysuria.? He reports that he noticed retention few nights prior but it was not constant, he was able to pee several times after. He denies any abdominal pain nausea or vomiting, no diarrhea constipation, no lower extremity edema On arrival to the ED patient's vitals are significant for a blood pressure of 149/95 otherwise unremarkable Labs are significant for WBC count of 16.9, otherwise unremarkable, UA showed large amount of blood as well as WBC, leukocyte Estrace.? Patient started on CBI, evaluated by Urology, recommended outpatient follow-up for his urinary retention.? But given his UTI elevated leukocytosis patient was deemed appropriate for admission for IV antibiotics Hospital Course patient admitted to general floor. Seen by Dr. Horne for blood around the catheter felt to be from the prostate. Dr. Horne use Kerlix as a tamponade and patient was admitted to the floor. Over the course of the next 48 hours, there was no further bleeding from around the catheter and the urine was clear. On the day of discharge, López was removed and patient was able to void thereafter without incident. He will be discharged home to follow-up with Dr. Kirkpatrick as an outpatient Time Spent with Patient Time attestation: Total time spent providing and/or coordinating discharge services: Discharge coordination time: Greater than 30 minutes Quality: Safe Use of Opioids Does Pt have an Active Cancer Diagnosis on the Problem List?: No Quality: Stroke Does the patient have a stroke diagnosis?: No Physical Exam Vital Signs: Vital Signs: Last Vital Signs Temp 97.4 F 11/14/21 11:52 Pulse 75 11/14/21 11:52 Resp 20 11/14/21 11:52 BP 156/88 H 11/14/21 11:52 Pulse Ox 97 11/14/21 11:52 O2 Del Method 11/14/21 11:52 BMI result Body Mass Index 29.5 Const: Other: no acute issues Resp: Other: clear to auscultation bilaterally no rales rhonchi or wheezes Cardio: Other: no S4; positive S1-S2; no S3 murmurs rubs or gallops GI: Other: soft nontender nondistended normoactive bowel sounds Extrem: Other: no edema DS: Data Data Completed and Pending Labs on day of discharge: Laboratory Results - last 24 hr 11/14/21 11/14/21 06:11 06:11 WBC 9.8 RBC 4.90 Hgb 15.1 Hct 43.9 MCV 89.6 MCH 30.8 MCHC 34.4 RDW 12.6 Plt Count 221 MPV 11.3 Immature Gran % (Auto) 1.0 H Neut % (Auto) 59.8 Lymph % (Auto) 22.1 Marshall % (Auto) 10.4 Eos % (Auto) 6.1 H Baso % (Auto) 0.6 Lymph # (Auto) 2.2 Marshall # (Auto) 1.0 Eos # (Auto) 0.6 H Baso # (Auto) 0.1 Abs Immat Gran (auto) 0.10 H Absolute Neuts (auto) 5.9 Absolute Nucleated RBC 0.000 Nucleated RBC % (auto) 0.0 Sodium 138 Potassium 4.4 Chloride 104 Carbon Dioxide 22 Anion Gap 16 BUN 21 H Creatinine 1.11 Estim Creat Clear Calc 59.0 Estimated GFR > 60 Fasting Glucose 123 H Calcium 8.4 Total Bilirubin 0.9 AST 23 ALT 25 Alkaline Phosphatase 41 Total Protein 6.4 L Albumin 3.5 Preliminary micro results at discharge 11/11/21 16:05 Blood Culture - Preliminary Blood - Venous No growth after 48 hours. 11/11/21 16:00 Blood Culture - Preliminary Blood - Venous No growth after 48 hours. Discharge Plan Discharge Patient Disposition: Home, Self-Care Discharge Diagnosis: urinary retention /hematuria Referrals: Festus Vega III, MD [Primary Care Provider] - 1 Week Discharge Medications: Continued tamsulosin [Flomax] 0.4 mg capsule 0.4 mg PO DAILY Qty: 7 0RF amlodipine 5 mg tablet 1 tab PO DAILY omeprazole 20 mg capsule,delayed release(DR/EC) 1 cap PO DAILY pravastatin 20 mg tablet 1 tab PO DAILY trospium 20 mg tablet 1 tab PO DAILY PRN (Reason: Incontinence) febuxostat 40 mg tablet 1 tab PO DAILY multivitamin Tablet 1 tab PO DAILY cholecalciferol (vitamin D3) [Vitamin D3] 10 mcg (400 unit) Capsule 10 mcg PO DAILY Discharge Orders: Discharge Order (Routine); Ordered 11/14/21 Ordered By: Chago Morillo Diet: Advance to usual diet Activity on Discharge: As tolerated Stand Alone Forms: Patient Portal Discharge page Care Plan Goals: follow-up with Dr. Kirkpatrick as scheduled Health Concerns: if unable to void or bleeding returns return to ER Plan of Treatment: continue all medicines as prior to hospitalization Assessment: see discharge summary
--- NOTE | 2021-11-14 13:14 | MHC.CM.PN ---
Patient discharged to home. No home services needed or ordered. Patient has arranged for transportation
== END 2021-11-14 14:59 | disposition home or self-care (01) | DRG 700 ==
LOC: HO.ED 18:21 → HO.EDOVER 20:34 → HO.IMC 11-12 14:31
PROVIDERS: Physician Assistant; Admitting Provider Internal Medicine; Emergency Provider Emergency Medicine; PCP Internal Medicine; Visit Provider Hospitalist
DX: T83.83XA Hemorrhage due to genitourinary prosthetic devices, implants and grafts, initial encounter (principal); Y73.8 Miscellaneous gastroenterology and urology devices associated with adverse incidents, not elsewhere classified; N40.1 Benign prostatic hyperplasia with lower urinary tract symptoms; R31.0 Gross hematuria; R19.5 Other fecal abnormalities; R33.8 Other retention of urine; K21.9 Gastro-esophageal reflux disease without esophagitis; I10 Essential (primary) hypertension; Z20.822 Contact with and (suspected) exposure to COVID-19; Z87.81 Personal history of (healed) traumatic fracture; Z88.5 Allergy status to narcotic agent; Z88.8 Allergy status to other drugs, medicaments and biological substances; Z79.899 Other long term (current) drug therapy
CPT/HCPCS: 36415; 51798; 80048; 80053; 81001; 82550; 83605; 85025; 85610; 85730; 87040; 87086; 87635; 96365; 99283; 99284; 99285; J0696

== ENCOUNTER → 2024-02-06 11:13 | Outpatient (AMB) | payer MEDICARE, OTHER, SELFPAY ==
--- NOTE | 2024-02-06 11:18 | MHC.OFFVIS ---
Vital Signs 02/06/24 11:20 Height 5 ft 9 in Weight 198 lb 6.656 oz BMI 29.3 BP 128/79 Blood Pressure Location Lt brachial Position Sitting Pulse 65 Intake Visit Reasons: Gastroesophageal reflux disease (GERD) Intake Note: Jimmy presents in the office as a new patient for colonoscopy. Allergies allopurinol [Allopurinol] Allergy (Severe, Verified 02/06/24 11:20) HIVES, rash oxycodone [Oxycodone] Adverse Reaction (Intermediate, Verified 02/06/24 11:20) NAUSEA & VOMITING HPI Comments Details: 83 y.o M with PMH of colon polyps who is here to establish care. Has hx of 4 tubular adenoma in 2020. Was supposed to go for repeat colo earlier this year but had issue with coordinating a ride. That still is one of the main barriers and hence looking to shift from [facility] to [facility] to see if can get assistance with transport for the procedure. Otherwise no GI issues. No abd pain, N,V,D. No blood in stool. No fam hx of CRC. Older brother had polyps too. Pt also has hx of aortic aneurysm and per PCP documentation had a recent increase in size from 4.2 to 4.9 this year. He is chencho for CT chest for further evaluation. Follows with Dr Dada Lozano in [facility] for this. COUNT INCLUDES THE [facility] Medical History GERD (gastroesophageal reflux disease) Hypertension BPH (benign prostatic hyperplasia) Surgical History History of esophagogastroduodenoscopy (EGD) Hx of colonoscopy No pertinent past surgical history Family History Other No family history of coronary artery disease Social History Household Members: Significant Other Housing: House Do you presently have visiting nurse or other home services: No Alcohol intake: current Patient Tobacco Use Status: Former Tobacco user Advance Directives Date on File: 11/12/21 service: No Current occupational status: retired Review of Systems Const All systems reviewed & are unremarkable except as noted in HPI and below Physical Exam Vital Signs: Last Vital Signs Pulse 65 02/06/24 11:20 BP 128/79 02/06/24 11:20 BMI result Body Mass Index 29.3 No apparent distress Nonicteric Abdomen soft, nondistended Alert and oriented x3, normal gait Assessment & Plan Assessment & Plan (1) Personal history of colonic polyps: Code(s): Z86.0100 - Personal history of colon polyps, unspecified Category: Medical (2) Family history of colonic polyps: Code(s): Z83.719 - Family history of colon polyps, unspecified Category: Medical (3) Aortic aneurysm: Code(s): I71.9 - Aortic aneurysm of unspecified site, without rupture Category: Medical Plan Overdue for surveillance colo. Will book this today, pt aware that will likely be scheduled for early next year. Plan: - PEG prep Rxed - Reese to be booked as above - Cardiology clearance will be requested for enlarging aortic aneurysm - Pt will also need transportation services (requested) Follow up after procedure Medications: New peg 3350-electrolytes 236-22.74-6.74 -5.86 gram (Golytely) as per split prep instructions, until fecal effluent is clear 240 mL PO Q10M 4,000 mL 0RF colonoscopy Coding Level of Care Code New Pt Level 4 (12350) Diagnoses Personal history of colonic polyps Z86.0100 Family history of colonic polyps Z83.719 Aortic aneurysm I71.9
[2024-02-06 11:20] VITALS: BP 128/79; PULSE 65; BMI 29.3
== END ==
PROVIDERS: PCP Internal Medicine; Visit Provider Internal Medicine
DX: Z86.0100 Personal history of colon polyps, unspecified (principal); Z83.719 Family history of colon polyps, unspecified; I71.9 Aortic aneurysm of unspecified site, without rupture
CPT/HCPCS: 99204

== ENCOUNTER → 2024-02-06 11:13 | Outpatient (BNVA) | payer MEDICARE, OTHER, SELFPAY | PROVIDERS: PCP Internal Medicine; Visit Provider Internal Medicine | DX: K21.9 Gastro-esophageal reflux disease without esophagitis (principal); I71.9 Aortic aneurysm of unspecified site, without rupture; Z86.0100 Personal history of colon polyps, unspecified; Z83.719 Family history of colon polyps, unspecified | CPT/HCPCS: 99202 ==

== ENCOUNTER 2024-05-01 12:54 | Outpatient (REF) | payer MEDICARE, OTHER, SELFPAY ==
--- OUTSIDE RECORDS SUMMARY | 2024-05-01 13:56 | XMS_ITS | Encounter Summary ---
Author Organization [facility] Address [address] [place] [address] Care Team Providers Care Meteorologist In Charge Name Role Phone Festus Vega MD Primary Care Provider [phone] Reason for Visit * Reason Comments Chronic Kidney Disease Encounter Details Date Type Department Care Team (Late st Contact Info) Description 04/11/2024 4:30 PM EST Office Visit Nephrology [address] [phone] Malcolm Webb MD [address] [facility] [address] [place] [address] Stage 3a chronic kidney disease (CMS/HCC) (Primary Dx); Hypertension, unspecified type Social History Tobacco Use Types Packs/Day Years Used Date Smoking Tobacco: Former Cigarettes Q uit: 01/18/2007 Smokeless Tobacco: Never Alcohol Use Standard Drinks/Week Comments Yes 0 (1 standard drink = 0.6 oz pur e alcohol) Sex and Gender Information Value Date Recorded Sex Assigned at Not on file Legal Sex Male 5:14 AM EST Gender Identity Not on file Sexual Orientation Not on file documented as of this encounter Last Filed Vital Signs Vital Sign Reading Time Taken Comments Blood Pressure 135/71 04/11/2024 3:26 PM EST Pulse 61 04/11/2024 3:26 PM EST Temperature - - Respiratory Rate - - Oxygen Saturation - - Inhaled Oxygen Concentration - - Weight 92.1 kg (203 lb) 04/11/2024 3:26 PM EST Height - - Body Mass Index 29.98 04/10/2024 3:04 PM EST documented in this encounter Progress Notes * Malcolm Webb MD - 04/11/2024 4:30 PM EST Renal follow up note : Jimmy Valdez is a 84 y.o. year old male seen today for f/u HPI: Last seen > 2 years ago Patient is feeling well at the present time no major complaints no major urinary issues patient states that he is stressed out as patient fell down and had a back / spine surgery He denies any chest pain but does have occasional dizziness HOME MEDICATIONS: Home Medications acetaminophen (TYLENOL) 500 mg tablet Take 500 mg by mouth every 6 hours as needed. amLODIPine (NORVASC) 5 mg tablet Take 1 Tablet by mouth daily. in addition to 2.5mg for a total of 7.5mg diclofenac (VOLTAREN) 1 % topical gel Apply 2 g topically 4 (four) times a day. fluocinonide (LIDEX) 0.05 % ointment Apply topically 2 (two) times a day if needed for irritation or rash. Avoid face and groin. [id number] BORATE ORAL Take by mouth. MELATONIN ORAL Take by mouth. Melatonin gummy mometasone (ELOCON) 0.1 % cream Apply topically 1 (one) time each day. multivitamin (MULTIPLE VITAMINS ORAL) Take by mouth. multivitamin,ther and minerals (VITAMINS AND MINERALS ORAL) Take 1 capsule by mouth daily. omeprazole (PriLOSEC) [address] capsule TAKE 1 CAPSULE BY MOUTH EVERY OTHER DAY pravastatin (PRAVACHOL) 20 mg tablet Take 1 Tablet by mouth at bedtime. diclofenac (VOLTAREN) 1 % topical gel Apply 1 g topically 3 times daily as needed (pain). febuxostat (ULORIC) 40 mg tablet Take 1 tablet (40 mg total) by mouth 1 (one) time each day. ACTIVE MEDICATIONS: Current medications reviewed. ALLERGY: Allergies Allergen Reactions Allopurinol Rash PHYSICAL EXAM: Visit Vitals BP 135/71 Pulse 61 Wt 92.1 kg (203 lb) BMI 29.98 kg/m?? Smoking Status Former BSA 2.08 m?? No intake/output data recorded. No intake/output data recorded. APPEARANCE: Alert and in no acute distress par EYES: PERRLA, conjunctiva and sclera normal. EARS: External ears normal. Canals clear. NOSE/SINUS: Nares normal. Septum midline. Mucosa normal. No drainage or sinus tenderness. THROAT: no erythema or exudates NECK: Neck supple, no adenopathy, thyroid symmetric and of normal size HEART: RRR with normal S1 and S2 ,no murmurs, no gallops, no JVD appreciated LUNG: clear to auscultation ABDOMEN: Bowel sounds normoactive, no bruits, soft, non-tender, without organomegaly or palpable masses EXTREMITIES: Extremities warm and well perfused without clubbing, cyanosis, or edema NEURO: Awake, alert and oriented x 3, no focal neurological deficit, with symmetrical reflexes SKIN: Skin color, texture, turgor normal. No rashes or lesions. LABS: Results from last 7 days Lab Units 04/10/24 1607 CREATININE mg/dL 1.44* BUN mg/dL 20 SODIUM mmol/L 138 POTASSIUM mmol/L 4.1 CHLORIDE mmol/L 104 CO2 mmol/L 30 No results found for: PHOS , [id number] , PTH , PUR No results found for: IRON , TIBC , FERRITIN No results found for: COLORUA , CLARITYUA , SPECGRAVUA , PHUA , PROTUA , GLUCOSEUA , KETONESUA , BILIRUBINUA , BLOODUA , UROBILINOGUA , NITRITEUA ASSESSMENT 1. Stage 3a chronic kidney disease (CMS/HCC) 2. Hypertension, unspecified type PLAN: Chronic kidney disease: Based on patient last creatinine patient has an estimated GFR places him at stage IIIa chronic kidney disease. Over the last 2 years GFR is fallen about 3 to 4 mL/min which is acceptable The likely reason for chronic kidney disease in this patient due to hypertension with hypertensive nephrosclerosis The possibility of age-related glomerular sclerosis also in the differential diagnosis Do not think there is an acute component of renal insufficiency in this patient as his creatinine has been as high as 1.2-1.4 dating back to 2005 He has been advised to keep himself hydrated No obstructive symptoms Hypertension : he has baseline essential hypertension which is superimposed on possibility of renalparenchymal hypertension His blood pressure is slightly above target but he is not taking a higher dose of amlodipine i.e. taking only 5 mg as against 7.5 mg as he has dizzy episodes He's been advised to avoid using NSAIDs/Will 2 inhibitors and take Tylenol for pain He has been advised to avoid losing more weight A workup for secondary hyperparathyroidism including calcium, phosphorus and PTH level reordered He has been advised to keep himself hydrated He is off FLAKITA inhibitor due to hyperkalemia and I would agree with continuation of amlodipine Continue statin for hypercalcemia In regards to renal stone he's been advised to increase his by mouth fluid intake In regards to hypercholestremia recommend keeping the LDL level less than 100 In regards to gout I agree with 40 mg of urolic dosing Follow-up with me in 6 months we did a set of renal lab work documented in this encounter Plan of Treatment Upcoming Encounters Date Type Department Care Team (Late st Contact Info) Description 08/27/2024 10:00 AM EDT Ancillary Procedure [facility] [address] [facility] [address] [place] [address] 10/16/2024 1:15 PM EDT Office Visit Adult Medicine [facility] - [address] [phone] Festus Vega MD [address] [place] [address] 04/17/2025 1:15 PM EST Office Visit Nephrology - [address] [phone] Malcolm Webb MD [address] [facility] [address] [place] [address] Scheduled Orders Name Type Priority Associated Diagnoses Orde r Schedule BUN Lab Routine Stage 3a chronic kidney disease ([facility]) Hypertension, unspecified type Expected: 01/19/2025, Expires: 04/10/2025 Creatinine Lab Routine Stage 3a chronic kidney disease ([facility]) Hypertension, unspecified type Expected: 01/19/2025, Expires: 04/10/2025 Electrolyte panel Lab Routine Stage 3a chronic kidney disease ([facility]) Hypertension, unspecified type Expected: 01/19/2025, Expires: 04/10/2025 Protein and creatinine with ratio, urine Lab Routine Stage 3a chronic kidney disease ([facility]) Hypertension, unspecified type Expected: 01/19/2025, Expires: 04/10/2025 PTH, intact and calcium Lab Routine Stage 3a chronic kidney disease ([facility]) Hypertension, unspecified type Expected: 01/19/2025, Expires: 04/10/2025 documented as of this encounter Visit Diagnoses Diagnosis Stage 3a chronic kidney disease ([facility])- Primary Hypertension, unspecified type documented in this encounter Historical Medications * This list may reflect changes made after this encounter. MELATONIN ORAL Take by mouth. Melatonin gummy added in this encounter Additional Health Concerns Assessment Noted Time PHQ-9 Depression Total Score: 0 04/07/19 25 12:23 PM EST documented as of this encounter Care Teams Meteorologist In Charge Relationship Specialty Start Date End Date Festus Vega MD [address] [place] [phone] PCP - General Internal Medicine 11/18/18 documented as of this encounter
--- OUTSIDE RECORDS SUMMARY | 2024-05-01 13:56 | XMS_ITS | Encounter Summary ---
Author Organization [facility] Address [address] [place] [address] Care Team Providers Care Instrument Designer Name Role Phone Festus Vega MD Primary Care Provider [phone] Reason for Referral * Consultation (Routine) - Authorized Specialty Diagnoses / Procedures Referred By Javier arreola Referred To Contact Audiology Diagnoses Hearing loss of right ear, unspecified hearing loss type Festus Vega MD [address] [place] [address] Phone: tel: fax: [address] Phone: tel: Referral ID Status Reason Start Date Expiration Date Visits Requested Visits Authorized [id number] Authorized Specialty Services Required 04/10/2024 04/10/2025 1 1 * Consultation (Routine) - Authorized Specialty Diagnoses / Procedures Referred By Javier arreola Referred To Contact Dermatology Diagnoses Pruritus Festus Vega MD [address] [place] [address] Phone: tel: fax: Ann Marie Beltran MD [facility] [address] [place] [address] Phone: tel: Referral ID Status Reason Start Date Expiration Date Visits Requested Visits Authorized [id number] Authorized Specialty Services Required 04/10/2024 04/10/2025 1 1 Reason for Visit * Reason Comments AWV Hypertension Encounter Details Date Type Department Care Team (Late st Contact Info) Description 04/10/2024 3:00 PM EST Office Visit Adult Medicine [facility] [address], [place] [phone] Festus Vega MD [address] [place] [address] Encounter for subsequent annual wellness visit (AWV) in Medicare patient (Primary Dx); Stage 3a chronic kidney disease (CMS/HCC); Primary hypertension; Pruritus; Hearing loss of right ear, unspecified hearing loss type; Pain of right hip; Aortic dilatation (CMS/HCC) Social History Tobacco Use Types Packs/Day Years Used Date Smoking Tobacco: Former Cigarettes Q uit: 01/18/2007 Smokeless Tobacco: Never Tobacco Cessation:Counseling Given: Not Answered Alcohol Use Standard Drinks/Week Comments Yes 0 (1 standard drink = 0.6 oz pur e alcohol) Sex and Gender Information Value Date Recorded Sex Assigned at Not on file Legal Sex Male 5:14 AM EST Gender Identity Not on file Sexual Orientation Not on file documented as of this encounter Last Filed Vital Signs Vital Sign Reading Time Taken Comments Blood Pressure 134/68 04/10/2024 3:04 PM EST Pulse 66 04/10/2024 3:04 PM EST Temperature 36.1 ??C (96.9 ??F) 04/10/2024 3:04 PM ES T Respiratory Rate 16 04/10/2024 3:04 PM EST Oxygen Saturation 94% 04/10/2024 3:04 PM EST Inhaled Oxygen Concentration - - Weight 91.6 kg (202 lb) 04/10/2024 3:04 PM EST Height 175.3 cm (5' 9 ) 04/10/2024 3:04 PM EST Body Mass Index 29.83 04/10/2024 3:04 PM EST documented in this encounter Ordered Prescriptions Prescription Sig Dispense Quantity Refills Last Filled Start Date End Date diclofenac (VOLTAREN) 1 % topical gel Apply 2 g topically 4 (four) times a day. 30 g 1 04/10/2024 fluocinonide (LIDEX) 0.05 % ointment Apply topically 2 (two) times a day if needed for irritation or rash. Avoid face and groin. 60 g 04/10/2024 6 mometasone (ELOCON) 0.1 % cream Apply topically 1 (one) time each day. 45 g 1 04/10/2024 documented in this encounter Progress Notes * Festus Vega MD - 04/10/2024 3:00 PM EST Images from the original note were not included. Medicare Annual Wellness Visit Note Patient Name: Jimmy Valdez Date of : 1940 Race: White Ethnicity: Not Hispan/Lat Date of Service: 04/10/2024 Jimmy is a 84 y.o. male presenting for AWV History of Present Illness HPI Comprehensive Medical and Social History: Patient Active Problem List Diagnosis Gout Aortic dilatation (CMS/HCC) BPH (benign prostatic hyperplasia) CKD (chronic kidney disease) stage 3, GFR 30-59 ml/min (CMS/HCC) Diverticulitis of colon without hemorrhage Dysphagia Elevated PSA GERD (gastroesophageal reflux disease) HTN (hypertension) Mixed hyperlipidemia Nephrolithiasis Renal cyst Allergies Allergen Reactions Allopurinol Rash Current Outpatient Medications Medication Sig Dispense Refill acetaminophen (TYLENOL) 500 mg tablet Take 500 mg by mouth every 6 hours as needed. amLODIPine (NORVASC) 5 mg tablet Take 1 Tablet by mouth daily. in addition to 2.5mg for a total of 7.5mg [id number] BORATE ORAL Take by mouth. mometasone (ELOCON) 0.1 % cream Apply topically 1 (one) time each day. 45 g 1 multivitamin (MULTIPLE VITAMINS ORAL) Take by mouth. omeprazole (PriLOSEC) [address] capsule TAKE 1 CAPSULE BY MOUTH EVERY OTHER DAY 90 capsule 1 pravastatin (PRAVACHOL) 20 mg tablet Take 1 Tablet by mouth at bedtime. amLODIPine (NORVASC) 2.5 mg tablet Take 1 Tablet by mouth daily. in addition to 5mg for a total of 7.5mg diclofenac (VOLTAREN) 1 % topical gel Apply 1 g topically 3 times daily as needed (pain). febuxostat (ULORIC) 40 mg tablet Take 1 tablet (40 mg total) by mouth 1 (one) time each day. multivitamin,ther and minerals (VITAMINS AND MINERALS ORAL) Take 1 capsule by mouth daily. No current facility-administered medications for this visit. Past Medical History: Diagnosis Date Diverticulitis of colon (without mention of hemorrhage)(562.11) 12/16/2005 DX:Diverticulitis of colon (without mention of hemorrhage)(562.11) Diverticulosis of colon (without mention of hemorrhage) 08/19/2009 DX:Diverticulosis of colon (without mention of hemorrhage) Family history of malignant neoplasm of gastrointestinal tract 08/19/2009 DX:Family history of malignant neoplasm of gastrointestinal tract Gout, unspecified 12/16/2005 DX:Gout, unspecified Kidney stone DX:Kidney stone Nephrolithiasis 10/13/2009 DX:Nephrolithiasis Personal history of colonic polyps 12/16/2005 DX:Personal history of colonic polyps Past Surgical History: Procedure Laterality Date COLONOSCOPY 10/15/2014 PROCEDURE: HISTORICAL COLONOSCOPY; COMMENT: dim polyps in the RC x 5: Tubular adenoma x5. COLONOSCOPY 08/19/2009 PROCEDURE: HISTORICAL COLONOSCOPY; COMMENT: Diminutive tubular adenoma x 3. COLONOSCOPY 04/15/2004 PROCEDURE: HISTORICAL COLONOSCOPY; COMMENT: diverticulosis COLONOSCOPY 10/06/2000 PROCEDURE: HISTORICAL COLONOSCOPY; COMMENT: 8 mm tubular adenoma COLONOSCOPY 12/24/2019 PROCEDURE: HISTORICAL COLONOSCOPY; COMMENT: Diminutive colonic polyps x4: Tubular adenoma x4. KNEE ARTHROSCOPY 1970 PROCEDURE: NM ARTHROSCOPY KNEE DIAGNOSTIC W/WO SYNOVIAL BX SPX MULTIPLE TOOTH EXTRACTIONS PROCEDURE: HISTORICAL DENTAL EXTRACTION OTHER SURGICAL HISTORY PROCEDURE: ---- OTHER ----; COMMENT: stent for kidney stone UPPER GASTROINTESTINAL ENDOSCOPY 06/23/2010 PROCEDURE: NM UPPER GI ENDOSCOPY PERFORMED; COMMENT: normal on ppi rx Social History Socioeconomic History Marital status: Spouse name: None Number of children: None Years of education: None Highest education level: None Occupational History None Tobacco Use Smoking status: Former Current packs/day: 0.00 Types: Cigarettes Quit date: 01/18/2007 Years since quittin.2 Smokeless tobacco: Never Substance and Sexual Activity Alcohol use: Yes Drug use: No Sexual activity: None Other Topics Concern None Social History Narrative None Family History Problem Relation Name Age of Onset Other (Other: Other) Mother age 97, CHF Lung cancer Father age 85 Arthritis Brother one with gout Colon cancer Brother dx age > 60 yo Colon polyps Brother brother #1 Colon polyps Brother brother#2 Immunizations: Immunization History Administered Date(s) Administered COVID-19 (Moderna/Spikevax) 12yo and older 01/26/2023 COVID-19 (Pfizer/Comirnaty) 12yo and older 12/22/2023 Influenza trivalent, 0.5mL (Fluzone High-dose) 65yo and older 11/30/2016, 11/22/2017 Influenza trivalent, with preservative (Fluzone; Afluria) 6mo and older 02/02/2005, 01/07/2006, 12/26/2006, 12/20/2008, 12/31/2009, 01/01/2011, 12/15/2011, 02/05/2013 Influenza, Unspecified 12/06/2014, 11/25/2020, 12/08/2021 Moderna SARS-CoV-2 COVID-19, mRNA, LNP-S, preservative free 04/21/2020, 05/19/2020, 01/14/2021, 06/22/2021, 12/08/2021 Pneumococcal conjugate 13 valent (Prevnar 13, PCV13) 2mo and older 08/19/2015 Pneumococcal polysaccharide 23 valent (Pneumovax 23) 2yo and older 01/07/2006, 08/08/2013 Td Tetanus diptheria (Tdvax) 7yo and older 01/01/2011 Td, Unspecified 04/08/2000 Tdap Tetanus diptheria acellular pertussis (Boostrix; Adacel) 7yo and older 02/05/2013 Zoster recombinant (Shingrix) 19yo and older 01/21/2020, 03/24/2020 Hospitalization in the last year: Has not been hospitalized in the past 12 months. Current Providers and Suppliers: Patient Care Team: Festus Vega MD as PCP - General (Internal Medicine) Patient does not have/use current medical supplier Risk Assessments: Cognitive Function Assessment Cognitive screening performed. Depression Screening (PHQ2/9): Depression Screening Will the patient answer the depression risk questions?: Yes Over the last 2 weeks, how often have you been bothered by little interest or pleasure in doing things?: Not at all Over the last 2 weeks, how often have you been bothered by feeling down, depressed, or hopeless?: Not at all Depression Risk: 0 PHQ9 Full Set of Questions Over the last 2 weeks, how often have you been bothered by little interest or pleasure in doing things?: Not at all Over the last 2 weeks, how often have you been bothered by feeling down, depressed, or hopeless?: Not at all Depression Risk Score NEW: 0 Depression Plan : Screen was negative Anxiety Screening: Alcohol Screening: Substance Abuse Screening: Pain: Pain Medications: Patient does not take any opioid medications BMI: Body mass index is 29.83 kg/m??. The BMI is above average. The patient received dietary education because they have an above normal BMI. Functional Ability and Level of Safety Review Health Status: In general, the patient reports health as: good In general, patient reports life as: fair Patient reports sleep pattern as: sleeping well Have you seen a dentist in the last year?: Yes Activity of Daily Living (ADLs): Do you need help from others for your personal care such as eating, dressing, toileting, or gettingaround the house?: No Do you experience incontinence?: No Instrumental Activities of Daily Living (IADLs): Do you need help with using the telephone?: No Do you need help with shopping?: No Do you need help with food preparation?: No Do you need help with housekeeping?: No Do you need help with laundry?: No Do you need help handling finances?: Yes Do you drive?: Yes Do you manage your own medication?: Yes, independent Physical Activity: Do you exercise for about 20 minutes or more three days a week?: No Nutritional Assessment: Do you eat a balanced diet including daily serving of fruits, vegetables, and whole grains?: Yes, sometimes Social Influencer of Health (SIOH): Sexual Health: Have you been bothered by sexual problems: No Fall Risk: Have you fallen in the past year? no. Are you worried about falling? no. . Hearing: No data recorded Vision Screening: Required for Medicare Initial Preventative Physical Exam (IPPE) No data recorded Review of Systems Review of Systems Objective BP 134/68 Pulse 66 Temp 36.1 ??C (96.9 ??F) (Temporal) Resp 16 Ht 1.753 m (69 ) Wt 91.6 kg (202 lb) BMI 29.83 kg/m?? SpO2: 94 % Physical Exam Assessment/Plan Patient presented today for an Subsequent Medicare Wellness Visit with management of chronic condition(s). Assessment & Plan Advance Care Planning Discussion: Advance Care Planning was discussed. Jimmy reports that he does not have advance directives or surrogate decision maker. Patient has not identified their surrogate decision maker. During the visit we discussed: Code Status was discussed Full Code - Confirmed A total time of 16 minutes or greater was spent on Advance Care Planning today :No Fall Prevention Education Discussed: no action is indicated at this time Health Maintenance Topic Date Due RSV Immunization Patients 60+ Years Old (1 - 1-dose 75+ series) Never done Social Influencers of Health Screening Never done DTaP,Tdap,and Td Vaccines (4 - Td or Tdap) 02/05/2023 Medicare Annual Wellness Visit 02/02/2024 Hypertension/CHF/CAD Annual BMP Blood Test 08/07/2024 Depression Screening 04/07/2025 Falls Risk Assessment 04/10/2025 Cholesterol Screening (Lipid Panel) 08/07/2028 Influenza Vaccine Completed Pneumococcal Vaccine: 65+ Years Completed Zoster Vaccines Completed COVID-19 Vaccine Completed HIB Vaccines Aged Out Hepatitis B Vaccines Aged Out IPV Vaccines Aged Out Hepatitis A Vaccines Aged Out MMR Vaccines Aged Out Varicella Vaccines Aged Out Meningococcal ACWY Vaccine Aged Out HPV Vaccines Aged Out RSV Immunization Patients Under 20 months Aged Out Festus Vega MD [facility] [address] [address] Dept: [phone] Dept * Festus Vega MD - 04/10/2024 3:00 PM EST CHIEF COMPLAINT: AWV and Hypertension IDENTIFIER: Jimmy Valdez is a 84 y.o. old male. HPI: Pt with htn pt is on norvasc 7.5 mg Pt notes typically takes only 5mg bp today near goal at 134/68 Pt checks pressure at home and notes pressure 130's/80 Pt notes rarely head/dizziness, shortness of breath , chest pain stable x years has had complete cardiac w/u pt still follows with cardiology, pt notes occasional lower ext edema right ankle notes isslight. Pt with ckd 3apt follows with renal(babu) has f/u scheduled for tomorrow Grf last 54 07/2023 Pt with hx of aortic aneurysm pt follows with cardiology next appointment 08/[address] chest 07/2023 Dilatation of the ascending thoracic aorta up to 4.3 cm in caliber, similar to prior studies as far back as 2019. Pt notes leg itch for at least a year , pt notes has symptoms has relief with estrellita-10 Pt notes right hip pain now for 2-3 months. Pt is not constant. Pt notes worse in the am gets better in a few minutes with walking ROS: GENERAL: Negative for malaise, significant weight loss and fever HEENT: hearing loss f right or at least 3 years pt notes saw ent aprox 3 years ago and noted to have mild loss pt notes he things the hearing has gotten worse RESPIRATORY: No cough, wheezing or shortness of breath CARDIOVASCULAR: Negative for chest pain, leg swelling and palpitations MUSCULOSKELETAL: See HPI SKIN: See HPI PAST MEDICAL HISTORY: Patient Active Problem List Diagnosis Date Noted BPH (benign prostatic hyperplasia) 2021 Mixed hyperlipidemia 08/23/2017 Aortic dilatation ([facility]) 10/03/2016 CKD (chronic kidney disease) stage 3, GFR 30-59 ml/min ([facility]) 07/13/2013 HTN (hypertension) 12/15/2011 Dysphagia 12/31/2009 Elevated PSA 12/31/2009 GERD (gastroesophageal reflux disease) 12/31/2009 Nephrolithiasis 10/13/2009 Renal cyst 10/13/2009 Diverticulitis of colon without hemorrhage 08/19/2009 Gout 12/16/2005 SOCIAL HISTORY: Social History Tobacco Use Smoking status: Former Current packs/day: 0.00 Types: Cigarettes Quit date: 01/18/2007 Years since quittin.2 Smokeless tobacco: Never Substance Use Topics Alcohol use: Yes FAMILY HISTORY: Family Status Relation Name Status Mother at age 96 Father at age 85 lung cancer 6 brothers Brother (Not Specified) Brother (Not Specified) Brother (Not Specified) Brother (Not Specified) Brother Alive Colon cancer Brother emphysema Brother Alive prostate cancer Brother Alive Brother Alive Son Alive Son Alive Daughter Alive No partnership data on file Family History Problem Relation Name Age of Onset Other (Other: Other) Mother age 97, CHF Lung cancer Father age 85 Arthritis Brother one with gout Colon cancer Brother dx age > 60 yo Colon polyps Brother brother #1 Colon polyps Brother brother#2 ACTIVE MEDICATIONS: Outpatient Medications Marked as Taking for the 04/10/24 encounter (Office Visit) with Festus Vega MD Medication Sig Dispense Refill acetaminophen (TYLENOL) 500 mg tablet Take 500 mg by mouth every 6 hours as needed. amLODIPine (NORVASC) 5 mg tablet Take 1 Tablet by mouth daily. in addition to 2.5mg for a total of 7.5mg [id number] BORATE ORAL Take by mouth. mometasone (ELOCON) 0.1 % cream Apply topically 1 (one) time each day. 45 g 1 multivitamin (MULTIPLE VITAMINS ORAL) Take by mouth. omeprazole (PriLOSEC) [address] capsule TAKE 1 CAPSULE BY MOUTH EVERY OTHER DAY 90 capsule 1 pravastatin (PRAVACHOL) 20 mg tablet Take 1 Tablet by mouth at bedtime. [DISCONTINUED] mometasone (ELOCON) 0.1 % cream Apply sparingly twice a day to eczema as needed ALLERGIES: Allopurinol PHYSICAL EXAM: Blood pressure 134/68, pulse 66, temperature 36.1 ??C (96.9 ??F), temperature source Temporal, resp. rate 16, height 1.753 m (69 ), weight 91.6 kg (202 lb), SpO2 94%. Body mass index is 29.83 kg/m??.Plan is deferred because the patient is aged 65 or older and a weight gain/reduction plan would complicate other health conditions APPEARANCE: Alert and in no acute distress EYES: PERRLA, conjunctiva and sclera normal EARS: External ears normal. Canals clear. TMs normal. HEART: RRR with normal S1 and S2, no murmurs, no gallops, no JVD appreciated LUNG: clear to auscultation bilaterally EXTREMITIES: Extremities warm and well perfused without clubbing, cyanosis, or edema and brownish skin color changes to the lower ext. Pt with significant right hip pain with hip rotation LABS: none IMPRESSION: 1. Encounter for subsequent annual wellness visit (AWV) in Medicare patient 2. Stage 3a chronic kidney disease (CMS/HCC) 3. Primary hypertension 4. Pruritus 5. Hearing loss of right ear, unspecified hearing loss type 6. Pain of right hip 7. Aortic dilatation (CMS/HCC) PLAN: Pt with htn bp acceptable today pt is written for norvasc 7.5 mg pt notes he usually only takes 5mgas bp is controlled I recommend pt d/c the 2.5mg tablet and take only the 5mg. Will check bmp to assess renal function and lytes Pt with ckd stage 3a pt to see renal tomw will check bmp to update gfr Pt with leg pruritus legs exam c.w hemosiderin deposits ? Venous stasis will trial lidex bid will check lfts to assess renal function and will refer to derm Pt notes hearing loss right ear exam benign will refer for hearing test Pt with aortic aneurysm has been stable pt follows with cards ct last year show stable size pt to have echo 08/2024 Pt with right hip pain c.w oa will check xray in the interim will trial voltaren, pt wth ckd will avoid nsaoids Pt to f/u with me in 6 months Orders Placed This Encounter Procedures XR Hip 2-3 Views Right Comprehensive metabolic panel Ambulatory referral to Dermatology Ambulatory referral to Audiology Full code - Confirmed ADDITIONAL ORDERS: None Festus Vega MD on 04/10/2024 at 3:10 PM EST documented in this encounter Plan of Treatment Upcoming Encounters Date Type Department Care Team (Late st Contact Info) Description 08/27/2024 10:00 AM EDT Ancillary Procedure [facility] [address] [facility] [address] [place] [address] 10/16/2024 1:15 PM EDT Office Visit Adult Medicine [facility] - [address] [phone] Festus Vega MD [address] [place] [address] 04/17/2025 1:15 PM EST Office Visit Nephrology [address] [phone] Malcolm Webb MD [address] [facility] [address] [place] [phone] Scheduled Referrals Name Type Priority Associated Diagnoses Order Schedule Ambulatory referral to Dermatology Outpatient Referral Routine Pruritus 1 Occurrences starting 04/10/2024 until 04/10/2025 Ambulatory referral to Audiology Outpatient Referral Routine Hearing loss of right ear, unspecified hearing loss type 1 Occurrences starting 04/10/2024 until 04/10/2025 documented as of this encounter Results * (ABNORMAL) Comprehensive metabolic panel (04/10/2024 4:07 PM EST) Sodium 138 133 - 145 mmol/L LAB CHEMISTRY METHOD 04/10/2024 6:45 PM [facility] Potassium 4.1 3.5 - 5.5 mmol/L LAB CHEMISTRY METHOD 04/10/2024 6:45 PM [facility] Chloride 104 96 - 110 mmol/L LAB CHEMISTRY METHOD 04/10/2024 6:45 PM [facility] CO2 30 21 - 32 mmol/L LAB CHEMISTRY METHOD 04/10/2024 6:45 PM [facility] Anion Gap 4 3 - 11 LAB CHEMISTRY METHOD 04/10/2024 6:45 PM [facility] Glucose 93 70 - 100 mg/dL LAB CHEMISTRY METHOD 04/10/2024 6:45 PM [facility] BUN 20 5 - 25 mg/dL LAB CHEMISTRY METHOD 04/10/2024 6:45 PM [facility] Creatinine 1.44(H) 0.70 - 1.30 mg/dL LAB CHEMISTRY METHOD 04/10/2024 6:45 PM [facility] eGFR 48(L) >=60 mL/min/1. 73m2 LAB CHEMISTRY METHOD 04/10/2024 6:45 PM [facility] Comment:Calculation based on the??Chronic Kidney Disease Epidemiology Collaboration (CKD-EPI) equation refit??without adjustment for race. BUN/Creatinine Ratio 13.9 LAB CHEMISTRY METHOD 04/10/2024 6:45 PM [facility] Calcium 8.6 8.5 - 10.5 mg/dL LAB CHEMISTRY METHOD 04/10/2024 6:45 PM EST [facility] AST (SGOT) 29 10 - 42 unit/L LAB CHEMISTRY METHOD 04/10/2024 6:45 PM [facility] ALT (SGPT) 49 10 - 60 unit/L LAB CHEMISTRY METHOD 04/10/2024 6:45 PM [facility] Alkaline Phosphatase 53 42 - 121 unit/L LAB CHEMISTRY METHOD 04/10/2024 6:45 PM [facility] Total Protein 8.0 6.0 - 8.0 g/dL LAB CHEMISTRY METHOD 04/10/2024 6:45 PM EST [facility] Albumin 3.8 3.2 - 5.0 g/dL LAB CHEMISTRY METHOD 04/10/2024 6:45 PM [facility] Total Bilirubin 0.5 0.0 - 1.4 mg/dL LAB CHEMISTRY METHOD 04/10/2024 6:45 PM EST [facility] Blood Venous blood specimen / Unknown Venipuncture / Unknown 04/10/2024 4:07 PM EST 04/10/2024 4:07 PM EST us Festus Vega MD LAB BLOOD ORDERABLES Final Resu lt [facility] [address] [place] [address], * XR Hip 2-3 Views Right (04/10/2024 3:52 PM EST) Anatomical Region Laterality Modality Lower Extremities, Hip Right Radiograp hic Imaging 04/10/2024 4:39 PM EST Impressions 04/10/2024 4:44 PM EST 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 oa Comparison: None FINDINGS: Sacroiliac joints and symphysis pubis are intact. ??Mild narrowing of the left hip joint space associated with minimal subchondral sclerosis of the acetabulum. ??Joint space narrowing of the right hip joint associated with cystic and sclerotic changes of the acetabulum. ??Right femoral head is well-seated within the acetabulum. Procedure Note Rosana Ramirez MD - 04/10/2024 XR HIP 2-3 VIEWS RIGHT Reason: hip pain ? oa Comparison: None FINDINGS: Sacroiliac joints and symphysis pubis are intact. Mild narrowing of theleft hip joint space associated with minimal subchondral sclerosis of theacetabulum. Joint space narrowing of the right hip joint associated withcystic and sclerotic changes of the acetabulum. Right femoral head iswell-seated within the acetabulum. 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 -------- FINAL REPORT -------- Dictated By: Rosana Ramirez Dictated Date: 04/10/2024 16:39 ET Assigned Physician: Rosana Ramirez Reviewed and Electronically Signed By: Rosana Ramirez Signed Date: 04/10/2024 16:44 ET Workstation ID: [id number] Transcribed By: Self Edit Transcribed Date: 04/10/2024 16:39 ET Festus Vega MD IMG XR PROCEDURES Final Result documented in this encounter Visit Diagnoses Diagnosis Encounter for subsequent annual wellness visit (AWV) in Medicare patient- Primary Stage 3a chronic kidney disease (CMS/HCC) Primary hypertension Unspecified essential hypertension Pruritus Unspecified pruritic disorder Hearing loss of right ear, unspecified hearing loss type Pain of right hip Aortic dilatation (CMS/HCC) Pain of right hip documented in this encounter Discontinued Medications Medication Sig Discontinue Reason Start Date End Da te mometasone (ELOCON) 0.1 % cream Apply sparingly twice a day to eczema as needed Reorder 02/02/2021 04/10/2024 amLODIPine (NORVASC) 2.5 mg tablet Take 1 Tablet by mouth daily. in addition to 5mg for a total of 7.5mg 08/08/2023 04/10/2024 documented as of this encounter Orders Code Status Count Last Ordered Date First Orde red Date FULL CODE CONFIRMED 1 04/10/2024 documented in this encounter Additional Health Concerns Assessment Noted Time PHQ-9 Depression Total Score: 0 04/07/19 25 12:23 PM EST documented as of this encounter Care Teams Instrument Designer Relationship Specialty Start Date End Date Festus Vega MD [address] [place] [phone] PCP - General Internal Medicine 11/18/18 documented as of this encounter
--- OUTSIDE RECORDS SUMMARY | 2024-05-01 13:56 | XMS_ITS | Encounter Summary ---
[facility] [address] [place] [address] Care Team Providers Care Fire Prevention Officer Name Role Phone Festus Vega MD Primary Care Provider [phone] Encounter Details Date Type Department Care Team (Latest Contact Info) Description 04/10/2024 3:42 PM EST - 04/10/2024 11:59 PM [facility] Hospital Encounter [facility] - [address] [place] [address] Pain of right hip Discharge Disposition: Home or Self Care Social History Tobacco Use Types Packs/Day Years [...] on file documented as of this encounter Medications at Time of Discharge acetaminophen (TYLENOL) 500 mg tablet Take 500 mg by mouth every 6 hours as needed. amLODIPine (NORVASC) 5 mg tablet Take 1 Tablet by mouth daily. in addition to 2.5mg for a total of 7.5mg 08/08/2023 diclofenac (VOLTAREN) 1 % topical gel Apply 1 g topically 3 times daily as needed (pain). 02/01/2023 diclofenac (VOLTAREN) 1 % topical gel Apply 2 g topically 4 (four) times a day. 30 g 1 04/10/2024 febuxostat (ULORIC) 40 mg tablet Take 1 tablet (40 mg total) by mouth 1 (one) time each day. 08/08/2023 fluocinonide (LIDEX) 0.05 % ointment Apply topically 2 (two) times a day if needed for irritation or rash. Avoid face and groin. 60 g 04/10/2024 [id number] YALU-CF BORATE ORAL Take by mouth. mometasone (ELOCON) 0.1 % cream Apply topically 1 (one) time each day. 45 g 1 04/10/2024 multivitamin (MULTIPLE VITAMINS ORAL) Take by mouth. multivitamin,the r and minerals (VITAMINS AND MINERALS ORAL) Take 1 capsule by mouth daily. omeprazole (PriLOSEC) [address] capsule TAKE 1 CAPSULE BY MOUTH EVERY OTHER DAY 90 capsule 1 02/24/2024 pravastatin (PRAVACHOL) 20 mg tablet Take 1 Tablet by mouth at bedtime. 08/08/2023 documented as of this encounter Discharge Disposition Disposition Code Departure Means Destination Home or Self Care documented in this encounter Plan of Treatment Upcoming Encounters Date Type Department Care Team (Late st Contact Info) Description 08/27/2024 10:00 AM EDT Ancillary Procedure [facility] [address] [facility] [address] [place] [phone] 10/16/2024 1:15 PM EDT Office Visit [facility] - [address] [phone] Festus Vega MD [address] [place] [address] 04/17/2025 1:15 PM EST Office Visit Nephrology [address] [phone] Malcolm Webb MD [address] [place] [phone] documented as of this encounter Procedures Procedure Name Priority Date/Time Associated Diagnosis Comments XR HIP 2-3 VIEWS RIGHT Routine 04/10/2024 3:52 PM EST Pain of right hip documented in this encounter Results * XR Hip 2-3 Views Right (04/10/2024 [...] Signed Date: 04/10/2024 16:44 ET Workstation ID: [id number] Transcribed By: Self Edit Transcribed Date: 04/10/2024 [...] Signed Date: 04/10/2024 16:44 ET Workstation ID: [id number] Transcribed By: Self Edit Transcribed Date: 04/10/2024 16:39 ET us Festus Vega MD IMG XR PROCEDURES Final Result documented in this encounter Visit Diagnoses Diagnosis Pain of right hip documented in this encounter Additional Health Concerns Assessment Noted Time PHQ-9 Depression Total Score: 0 04/07/19 25 12:23 PM EST documented as of this encounter Care Teams Fire Prevention Officer Relationship Specialty Start Date End Date Festus Vega MD [address] [place] [phone] PCP - General Internal Medicine 11/18/18 documented as of this encounter
--- OUTSIDE RECORDS SUMMARY | 2024-05-01 13:56 | XMS_ITS | Clinical Summary ---
Author Organization [facility] [address] [place] [address] [place] [phone] Phone Care Team Providers Care [employer]urbines Assembler Name Role Phone Festus Vega MD Primary Care Provider Allergies Active Allergy Reactions Criticality Noted Date Comments Allopurinol Rash 10/16/2008 Medications acetaminophen (TYLENOL) 500 mg tablet Take 500 mg by mouth every 6 hours as needed. Active amLODIPine (NORVASC) 5 mg tablet Take 1 Tablet by mouth daily. in addition to 2.5mg for a total of 7.5mg 08/08/19 24 Active diclofenac (VOLTAREN) 1 % topical gel Apply 1 g topically 3 times daily as needed (pain). 02/02/20 23 Active febuxostat (ULORIC) 40 mg tablet Take 1 tablet (40 mg total) by mouth 1 (one) time each day. 08/08/19 24 Active GLUCOSAM-CHOND -HYALU-CF BORATE ORAL Take by mouth. Active multivitamin,t her and minerals (VITAMINS AND MINERALS ORAL) Take 1 capsule by mouth daily. Active multivitamin (MULTIPLE VITAMINS ORAL) Take by mouth. Active pravastatin (PRAVACHOL) 20 mg tablet Take 1 Tablet by mouth at bedtime. 08/08/19 24 Active omeprazole (PriLOSEC) [address] capsule TAKE 1 CAPSULE BY MOUTH EVERY OTHER DAY 90 capsule 1 02/24/20 24 Active mometasone (ELOCON) 0.1 % cream Apply topically 1 (one) time each day. 45 g 1 04/10/19 25 Active fluocinonide (LIDEX) 0.05 % ointment Apply topically 2 (two) times a day if needed for irritation or rash. Avoid face and groin. 60 g 04/10/19 25 026 Active diclofenac (VOLTAREN) 1 % topical gel Apply 2 g topically 4 (four) times a day. 30 g 1 04/10/19 25 Active MELATONIN ORAL Take by mouth. Melatonin gummy Active amLODIPine (NORVASC) 2.5 mg tablet Take 1 Tablet by mouth daily. in addition to 5mg for a total of 7.5mg 08/08/19 24 025 Discontinued mometasone (ELOCON) 0.1 % cream Apply sparingly twice a day to eczema as needed 02/03/20 025 Discontinued(Re order) Active Problems Problem Noted Date Diagnosed Date BPH (benign prostatic hyperplasia) 2021 Mixed hyperlipidemia 08/23/2017 Aortic dilatation 10/03/2016 Overview (12/31/2023): 4.5 cm on CAT scan of 09/24/2016 CKD (chronic kidney disease) stage 3, GFR 30-59 ml/min 07/13/2013 Overview (12/31/2023): GFR 58 on 02/05/13. HTN (hypertension) 12/15/2011 Dysphagia 12/31/2009 Elevated PSA 12/31/2009 Overview (12/31/2023): Follows with [facility] 6 mth basis. Negative biopsy in the past. GERD (gastroesophageal reflux disease) 0 Overview (12/31/2023): EGD normal on PPI rx 06/23/2010. Nephrolithiasis 10/13/2009 Overview (12/31/2023): 08/2009 - stented, stent removed Renal cyst 10/13/2009 Diverticulitis of colon without hemorrhage 08/19 Overview (12/31/2023): Incidental finding at colonoscopy 2000. Gout 12/16/2005 Overview (12/31/2023): Elevated uric acid >9 since 2001 Allergy - skin rash to allopurinol Febuxostat started 2009 Encounters Date Type Department Care Team Description 04/11/2024 4:30 PM EST Office Visit Nephrology - [address] [phone] Malcolm Webb MD Stage 3a chronic kidney disease (CMS/HCC) (Primary Dx); Hypertension, unspecified type 04/10/2024 3:42 PM EST - 04/10/2024 11:59 PM EST Hospital Encounter XRAY - [address] [phone] Pain of right hip Discharge Disposition: Home or Self Care 04/10/2024 3:00 PM EST Office Visit Adult Medicine [facility] - [address] [phone] Festus Vega MD Encounter for subsequent annual wellness visit (AWV) in Medicare patient (Primary Dx); Stage 3a chronic kidney disease (CMS/HCC); Primary hypertension; Pruritus; Hearing loss of right ear, unspecified hearing loss type; Pain of right hip; Aortic dilatation (CMS/HCC) from Last 3 Months Immunizations Name Administration Dates Next Due Influenza trivalent, 0.5mL ( Fluzone High-dose) 65yo and older 11/22/2017,11/30/2016 Influenza trivalent, with pr eservative (Fluzone; Afluria) 6mo and older 02/05/2013,12/15/2011,01/01/2011,12/31,12/20/2008,12/26/2006,01/07/2006 ,02/02/2005 Influenza, Unspecified 12/08/2021,11/25/2020, Moderna SARS-CoV-2 COVID-19, mRNA, LNP-S, preservative free 12/08/2021,01/14/2021,05/19/2020,04/21 Pneumococcal conjugate 13 va lent (Prevnar 13, PCV13) 2mo and older 08/19/2015 Pneumococcal polysaccharide 23 valent (Pneumovax 23) 2yo and older 08/08/2013,01/07/2006 Td Tetanus diptheria (Tdvax) 7yo and older 01/01/2011 Td, Unspecified 04/08/2000 Tdap Tetanus diptheria acell ular pertussis (Boostrix; Adacel) 7yo and older 02/05/2013 Zoster recombinant (Shingrix ) 19yo and older 03/24/2020,01/21/2020 Surgical History Surgery Date Site/Laterality Comments KNEE ARTHROSCOPY 1970 PROCEDURE: DE ARTHROSCOPY KNEE DIAGNOSTIC W/WO SYNOVIAL BX SPX OTHER SURGICAL HISTORY PROCEDURE: ---- OTHER ----; COMMENT: stent for kidney stone COLONOSCOPY 10/15/2014 PROCEDURE: HISTORICAL COLONOSCOPY; COMMENT: dim polyps in the RC x 5: Tubular adenoma x5. MULTIPLE TOOTH EXTRACTIONS PROCEDURE: HISTORICAL DENTAL EXTRACTION UPPER GASTROINTESTINAL ENDOSCOPY 06/23/2010 PROCEDURE: DE UPPER GI ENDOSCOPY PERFORMED; COMMENT: normal on ppi rx COLONOSCOPY 08/19/2009 PROCEDURE: HISTORICAL COLONOSCOPY; COMMENT: Diminutive tubular adenoma x 3. COLONOSCOPY 04/15/2004 PROCEDURE: HISTORICAL COLONOSCOPY; COMMENT: diverticulosis COLONOSCOPY 10/06/2000 PROCEDURE: HISTORICAL COLONOSCOPY; COMMENT: 8 mm tubular adenoma COLONOSCOPY 12/24/2019 PROCEDURE: HISTORICAL COLONOSCOPY; COMMENT: Diminutive colonic polyps x4: Tubular adenoma x4. Medical History Medical History Date Comments Gout, unspecified 12/16/2005 DX:Gout, unspe cified Diverticulitis of colon (wit hout mention of hemorrhage)(562.11) 12/16/2005 DX:Diverticulitis of co estelita (without mention of hemorrhage)(562.11) Personal history of colonic polyps 12/16/2005 DX:Personal history of colonic polyps Kidney stone DX:Kidney stone Family history of malignant neoplasm of gastrointestinal tract 08/19/2009 DX:Family history of maligna nt neoplasm of gastrointestinal tract Diverticulosis of colon (wit hout mention of hemorrhage) 08/19/2009 DX:Diverticulosis of colon ( without mention of hemorrhage) Nephrolithiasis 10/13/2009 DX:Nephrolithias is Family History Medical History Relation Name Comments Arthritis Brother 1 one with gout Colon cancer Brother 2 dx age > 60 yo Colon polyps Brother 3 brother #1 Colon polyps Brother 4 brother#2 Lung cancer Father age 85 Other: Other Mother age 97 , CHF Relation Name Status Comments Brother 1 Brother 2 Brother 3 Brother 4 Brother 5 Alive Colon cancer Brother 6 emphysema Brother 7 Alive prostate cancer Brother 8 Alive Brother 9 Alive Daughter Alive Father (Age 85) lung cance r 6 brothers Mother (Age 96) Son 1 Alive Son 2 Alive Social History Tobacco Use Types Packs/Day Years [...] on file Sexual Orientation Not on file Obstetrics History Last Filed Vital Signs Vital Sign Reading Time Taken Comments Blood Pressure 135/71 04/11/2024 3:26 PM EST Pulse 61 04/11/2024 3:26 PM EST Temperature 36.1 ??C (96.9 ??F) 04/10/2024 3:04 PM ES T Respiratory Rate 16 04/10/2024 3:04 PM EST Oxygen Saturation 94% 04/10/2024 3:04 PM EST Inhaled Oxygen Concentration - - Weight 92.1 kg (203 lb) 04/11/2024 3:26 PM EST Height 175.3 cm (5' 9 ) 04/10/2024 3:04 PM EST Body Mass Index 29.98 04/10/2024 3:04 PM EST Plan of Treatment Upcoming Encounters Date Type Department Care Team (Late st Contact Info) Description 08/27/2024 10:00 AM EDT Ancillary Procedure [facility] - [facility] [address] [facility] [address] [place] [address] 10/16/2024 1:15 PM EDT Office Visit [facility] - [address] [phone] Festus Vega MD [address] [place] [address] 04/17/2025 1:15 PM EST Office Visit Nephrology - [address] [phone] Malcolm Webb MD [address] [place] [address] Health Maintenance Due Date Last Done Comments RSV Immunization Patients 60+ Years Old (1 - 1-dose 75+ series) 02/10/2016 Social Influencers of Health Screening 02/27/2022 DTaP,Tdap,and Td Vaccines (4 - Td or Tdap) 02/05/2023 02/05/2013, 01/01/2011, 04/08/2000 Depression Screening 04/07/2025 04/07/2024, 02/02/20 23 Falls Risk Assessment 04/10/2025 04/10/2024, 024 Hypertension/CHF/CAD Annual BMP Blood Test 04/10/2025 04/10/2024, 08/08/2023, 08/08/2023, Additional history exists Medicare Annual Wellness Visit 04/10/2025 04/10/2024 Cholesterol Screening (Lipid Panel) 08/07/2028 08/08/2023, 08/08/2023 Pneumococcal Vaccine: 50+ Years Completed 08/19/2015, 08/08/2013, 01/07/2006 Zoster Vaccines Completed 03/24/2020, 01/21/2020 COVID-19 Vaccine Completed 12/22/2023, 10/2022, 12/08/2021, Additional history exists Influenza Vaccine Completed 12/22/2023, , 12/08/2021, Additional history exists HIB Vaccines Aged Out No longer eligi ble based on patient's age to complete this topic HPV Vaccines Aged Out No longer eligi ble based on patient's age to complete this topic Hepatitis A Vaccines Aged Out No long er eligible based on patient's age to complete this topic Hepatitis B Vaccines Aged Out No long er eligible based on patient's age to complete this topic IPV Vaccines Aged Out No longer eligi ble based on patient's age to complete this topic MMR Vaccines Aged Out No longer eligi ble based on patient's age to complete this topic Meningococcal ACWY Vaccine Aged Out N o longer eligible based on patient's age to complete this topic Meningococcal B Vacine Aged Out No lo nger eligible based on patient's age to complete this topic RSV Immunization Patients Under 20 months Aged Out No longer eligible based on patient's age to complete this topic Varicella Vaccines Aged Out No longer eligible based on patient's age to complete this topic Procedures Procedure Name Priority Date/Time Associated Diagnosis Comments COMPREHENSIVE METABOLIC PANEL Routine 04/10/2024 4:07 PM EST Stage 3a chronic kidney disease (CMS/HCC) Primary hypertension Pruritus XR HIP 2-3 VIEWS RIGHT Routine 3:52 PM EST Pain of right hip FALLS RISK ASSESSMENT Routine 08/08/2023 LIPID PANEL Routine 08/08/2023 DEPRESSION SCREENING Routine 02/01/2023 from Last 3 Months or Most Recently Relevant to Health Maintenance Results * (ABNORMAL) Comprehensive metabolic panel (04/10/2024 4:07 PM EST) Sodium 138 133 - 145 mmol/L LAB CHEMISTRY METHOD 04/10/2024 6:45 PM [facility] Potassium 4.1 3.5 - 5.5 mmol/L LAB CHEMISTRY METHOD 04/10/2024 6:45 PM [facility] Chloride 104 96 - 110 mmol/L LAB CHEMISTRY METHOD 04/10/2024 6:45 PM [facility] CO2 30 21 - 32 mmol/L LAB CHEMISTRY METHOD 04/10/2024 6:45 PM [facility] Anion Gap 4 3 - 11 LAB CHEMISTRY METHOD 04/10/2024 6:45 PM [facility] Glucose 93 70 - 100 mg/dL LAB CHEMISTRY METHOD 04/10/2024 6:45 PM [facility] BUN 20 5 - 25 mg/dL LAB CHEMISTRY METHOD 04/10/2024 6:45 PM [facility] Creatinine 1.44(H) 0.70 - 1.30 mg/dL LAB CHEMISTRY METHOD 04/10/2024 6:45 PM [facility] eGFR 48(L) >=60 mL/min/1. 73m2 LAB CHEMISTRY METHOD 04/10/2024 6:45 PM [facility] Comment:Calculation based on the??Chronic Kidney Disease Epidemiology Collaboration (CKD-EPI) equation refit??without adjustment for race. BUN/Creatinine Ratio 13.9 LAB CHEMISTRY METHOD 04/10/2024 6:45 PM [facility] Calcium 8.6 8.5 - 10.5 mg/dL LAB CHEMISTRY METHOD 04/10/2024 6:45 PM [facility] AST (SGOT) 29 10 - 42 unit/L LAB CHEMISTRY METHOD 04/10/2024 6:45 PM [facility] ALT (SGPT) 49 10 - 60 unit/L LAB CHEMISTRY METHOD 04/10/2024 6:45 PM [facility] Alkaline Phosphatase 53 42 - 121 unit/L LAB CHEMISTRY METHOD 04/10/2024 6:45 PM [facility] Total Protein 8.0 6.0 - 8.0 g/dL LAB CHEMISTRY METHOD 04/10/2024 6:45 PM [facility] Albumin 3.8 3.2 - 5.0 g/dL LAB CHEMISTRY METHOD 04/10/2024 6:45 PM [facility] Total Bilirubin 0.5 0.0 - 1.4 mg/dL LAB CHEMISTRY METHOD 04/10/2024 6:45 PM [facility] Blood Venous blood specimen / Unknown Venipuncture / Unknown 04/10/2024 4:07 PM EST 04/10/2024 4:07 PM EST us Festus Vega MD LAB BLOOD ORDERABLES Final Resu lt [facility] [address] [place] [address], * XR Hip 2-3 Views Right (04/10/2024 [...] Signed Date: 04/10/2024 16:44 ET Workstation ID: [id number] Transcribed By: Self Edit Transcribed Date: 04/10/2024 [...] Signed Date: 04/10/2024 16:44 ET Workstation ID: [id number] Transcribed By: Self Edit Transcribed Date: 04/10/2024 16:39 ET Festus Vega MD IMG XR PROCEDURES Final Result * Falls Risk Assessment (08/08/2023) Pathologist [facility] Falls Risk Assessment abstracted Result [facility] Historical Provider HEALTH MAINTENANCE Final Result * (ABNORMAL) Lipid panel (08/08/2023) Pathologist [facility] LDL/HDL Ratio 4 0 - 4 Triglycerides 293(A) 0 - 150 mg/dL Cholesterol 117 0 - 200 mg/dL HDL 30(A) >=40 mg/dL LDL Cholesterol 29 0 - 100 mg/dL Blood Venous blood specimen / Unknown Result [facility] Historical Provider LAB BLOOD ORDERABLES Nella l Result * Depression Screening (02/01/2023) Pathologist [facility] Depression Screening abstracted Result [facility] Provider HEALTH MAINTENANCE Final Result from Last 3 Months or Most Recently Relevant to Health Maintenance Insurance MEDICARE [facility] Advance Directives * Full Code - Confirmed (Latest Code Status on File) Date Activated Date Inactivated Comments 04/10/2024 3:32 PM This code stat us was ascertained in the following way: Code status discussion: discussion with patient To update the patient's code status, place a code status order. Do not modify or discontinue any currently active code status orders. Care Teams [employer] Assembler Relationship Specialty Start Date End Date Festus Vega MD [address] [place] [phone] PCP - General Internal Medicine 11/18/18
== END 2024-05-01 12:55 | disposition home or self-care (01) ==
LOC: HO.SH 12:54
PROVIDERS: Visit Provider Internal Medicine
DX: Z01.118 Encounter for examination of ears and hearing with other abnormal findings (principal); H90.3 Sensorineural hearing loss, bilateral
CPT/HCPCS: 92557; 92567

== ENCOUNTER 2024-05-21 14:59 | Outpatient (REF) | payer SELFPAY ==
--- OUTSIDE RECORDS SUMMARY | 2024-05-21 17:49 | XMS_ITS | Clinical Summary ---
Author Organization [facility] [address] [place] [address] [place] [address] Phone Care Team Providers Care Delivery Stock Clerk Name Role Phone Festus Vega MD Primary Care Provider [phone] Allergies Active Allergy Reactions Criticality Noted Date Comments Allopurinol Rash 10/16/2008 Medications acetaminophen (TYLENOL) 500 mg tablet Take 500 mg by mouth every 6 hours as needed. Active amLODIPine (NORVASC) 5 mg tablet Take 1 Tablet by mouth daily. in addition to 2.5mg for a total of 7.5mg 4 Active diclofenac (VOLTAREN) 1 % topical gel Apply 1 g topically 3 times daily as needed (pain). 3 Active febuxostat (ULORIC) 40 mg tablet Take 1 tablet (40 mg total) by mouth 1 (one) time each day. 4 Active GLUCOSAM-CHOND -HYALU-CF BORATE ORAL Take by mouth. Act gerson multivitamin,t her and minerals (VITAMINS AND MINERALS ORAL) Take 1 capsule by mouth daily. Active multivitamin (MULTIPLE VITAMINS ORAL) Take by mouth. Active omeprazole (PriLOSEC) [address] capsule TAKE 1 CAPSULE BY MOUTH EVERY OTHER DAY 90 capsule 1 4 Active mometasone (ELOCON) 0.1 % cream Apply topically 1 (one) time each day. 45 g 1 5 Active fluocinonide (LIDEX) 0.05 % ointment Apply topically 2 (two) times a day if needed for irritation or rash. Avoid face and groin. 60 g 5 04/10/19 26 Active diclofenac (VOLTAREN) 1 % topical gel Apply 2 g topically 4 (four) times a day. 30 g 1 5 Active MELATONIN ORAL Take by mouth. Melatonin gummy Active pravastatin (PRAVACHOL) 20 mg tablet Take 1 tablet (20 mg total) by mouth at bedtime. at bedtime. 90 each 1 5 Active pravastatin (PRAVACHOL) 20 mg tablet Take 1 Tablet by mouth at bedtime. 4 05/17/19 25 Discontinu ed(Reorder ) Active Problems Problem Noted Date Diagnosed Date BPH (benign prostatic hyperplasia) 2021 Mixed hyperlipidemia 08/23/2017 Aortic dilatation 10/03/2016 Overview (12/31/2023): 4.5 cm on CAT scan of 09/24/2016 CKD (chronic kidney disease) stage 3, GFR 30-59 ml/min 07/13/2013 Overview (12/31/2023): GFR 58 on 02/05/13. HTN (hypertension) 12/15/2011 Dysphagia 12/31/2009 Elevated PSA 12/31/2009 Overview (12/31/2023): Follows with [facility] 6 mth basis. Negative biopsy in [...] Encounters Date Type Department Care Team Description 05/15/2024 Telephone Adult Medicine [address] [phone] Festus Vega MD Advice Only; Forms/questionnaires 04/11/2024 4:30 PM EST Office Visit Nephrology - [address] [phone] Malcolm Webb MD Stage 3a chronic kidney disease (CMS/HCC) (Primary Dx); Hypertension, unspecified type 04/10/2024 3:42 PM EST - 04/10/2024 11:59 PM EST Hospital Encounter XRAY [address] [phone] Pain of right hip Discharge Disposition: Home or Self Care 04/10/2024 3:00 PM EST Office Visit Adult [address] [phone] Festus Vega MD Encounter for subsequent annual [...] Date Site/Laterality Comments KNEE ARTHROSCOPY 1970 PROCEDURE: GA ARTHROSCOPY KNEE DIAGNOSTIC W/WO SYNOVIAL BX SPX OTHER SURGICAL HISTORY PROCEDURE: ---- OTHER ----; COMMENT: stent for kidney stone COLONOSCOPY 10/15/2014 PROCEDURE: HISTORICAL COLONOSCOPY; COMMENT: dim polyps in the RC x 5: Tubular adenoma x5. MULTIPLE TOOTH EXTRACTIONS PROCEDURE: HISTORICAL DENTAL EXTRACTION UPPER GASTROINTESTINAL ENDOSCOPY 06/23/2010 PROCEDURE: GA UPPER GI ENDOSCOPY PERFORMED; COMMENT: normal on [...] Description 08/27/2024 10:00 AM EDT Ancillary Procedure [facility] - [facility] [address] [facility] [address] [place] [address] 10/16/2024 1:15 PM EDT Office Visit Adult Medicine [address] [phone] Festus Vega MD [address] [place] [address] 04/17/2025 1:15 PM EST Office Visit Nephrology - [address] [phone] Malcolm Webb MD [address] [place] [address] Health Maintenance Due Date Last Done Comments [...] mmol/L LAB CHEMISTRY METHOD 04/10/2024 6:45 PM [facility] Potassium 4.1 3.5 - 5.5 mmol/L LAB CHEMISTRY METHOD 04/10/2024 6:45 PM [facility] Chloride 104 96 - 110 mmol/L LAB CHEMISTRY METHOD 04/10/2024 6:45 PM [facility] CO2 30 21 - 32 mmol/L LAB CHEMISTRY METHOD 04/10/2024 6:45 PM [facility] Anion Gap 4 3 - 11 LAB CHEMISTRY METHOD 04/10/2024 6:45 PM [facility] Glucose 93 70 - 100 mg/dL LAB CHEMISTRY METHOD 04/10/2024 6:45 PM [facility] BUN 20 5 - 25 mg/dL LAB CHEMISTRY METHOD 04/10/2024 6:45 PM [facility] Creatinine 1.44(H) 0.70 - 1.30 mg/dL LAB CHEMISTRY METHOD 04/10/2024 6:45 PM [facility] eGFR 48(L) >=60 mL/min/1. 73m2 LAB CHEMISTRY METHOD 04/10/2024 6:45 PM [facility] Comment:Calculation based on the??Chronic Kidney Disease Epidemiology Collaboration (CKD-EPI) equation refit??without adjustment for race. BUN/Creatinine Ratio 13.9 LAB CHEMISTRY METHOD 04/10/2024 6:45 PM [facility] Calcium 8.6 8.5 - 10.5 mg/dL LAB CHEMISTRY METHOD 04/10/2024 6:45 PM [facility] AST (SGOT) 29 10 - 42 unit/L LAB CHEMISTRY METHOD 04/10/2024 6:45 PM [facility] ALT (SGPT) 49 10 - 60 unit/L LAB CHEMISTRY METHOD 04/10/2024 6:45 PM [facility] Alkaline Phosphatase 53 42 - 121 unit/L LAB CHEMISTRY METHOD 04/10/2024 6:45 PM [facility] Total Protein 8.0 6.0 - 8.0 g/dL LAB CHEMISTRY METHOD 04/10/2024 6:45 PM [facility] Albumin 3.8 3.2 - 5.0 g/dL LAB CHEMISTRY METHOD 04/10/2024 6:45 PM [facility] Total Bilirubin 0.5 0.0 - 1.4 mg/dL LAB CHEMISTRY METHOD 04/10/2024 6:45 PM [facility] Blood Venous blood specimen / Unknown Venipuncture / Unknown 04/10/2024 4:07 PM EST 04/10/2024 4:07 PM EST us Festus Vega MD LAB BLOOD ORDERABLES Final Resu lt [facility] [address] [place] [address], [place] [phone] * XR Hip 2-3 Views Right (04/10/2024 [...] Signed Date: 04/10/2024 16:44 ET Workstation ID: [id number] Transcribed By: Self Edit Transcribed Date: 04/10/2024 [...] Signed Date: 04/10/2024 16:44 ET Workstation ID: [id number] Transcribed By: Self Edit Transcribed Date: 04/10/2024 16:39 ET Festus Vega MD IMG XR PROCEDURES Final Result * Falls Risk Assessment (08/08/2023) Pathologist [facility] Falls Risk Assessment abstracted Result [facility] Historical Provider HEALTH MAINTENANCE Final Result * (ABNORMAL) Lipid panel (08/08/2023) Pathologist [facility] LDL/HDL Ratio 4 0 - 4 Triglycerides 293(A) 0 - 150 mg/dL Cholesterol 117 0 - 200 mg/dL HDL 30(A) >=40 mg/dL LDL Cholesterol 29 0 - 100 mg/dL Blood Venous blood specimen / Unknown Result [facility] Historical Yolanda DIAZ LAB BLOOD ORDERABLES Nella l Result * Depression Screening (02/01/2023) Pathologist Pending sale to [facility] Depression Screening abstracted Result [facility] Historical Provider HEALTH MAINTENANCE Final Result from Last 3 Months or Most Recently Relevant to Health Maintenance Insurance MEDICARE [facility] Advance Directives * Full Code - Confirmed (Latest Code Status on File) Date Activated Date Inactivated Comments 04/10/2024 3:32 PM This code stat us was ascertained in the following way: Code status discussion: discussion with patient To update the patient's code status, place a code status order. Do not modify or discontinue any currently active code status orders. Care Teams Delivery Stock Clerk Relationship Specialty Start Date End Date Festus Vega MD [address] [place] [phone] PCP - General Internal Medicine 11/18/18
--- OUTSIDE RECORDS SUMMARY | 2024-05-21 17:49 | XMS_ITS | Encounter Summary ---
Author Organization [facility] Address [address] [place] [address] Care Team Providers Care Director Trade Name Role Phone Festus Vega MD Primary Care Provider [phone] Reason for Visit * Reason Onset Date Comments Advice Only 05/15/2024 Forms/questionnaires 05/15/2024 Encounter Details Date Type Department Care Team ([facility] st Contact Info) Description 05/15/2024 Telephone Adult [address] [phone] Festus Vega MD [address] [place] [address] Advice Only; Forms/questionnaires Social History Tobacco Use Types Packs/Day Years [...] on file documented as of this encounter Progress Notes * Tate Foss - 05/15/2024 1:44 PM EST Call from [facility] audiology - Stating they had faxed over a paper that needs to be signed by the provider for a procedure that will be done this week , would like to speak to nurse that works with provider to discuss if anything can be expedieted or if a fax can be sent in a more timely manner Shahana - ask for Shahana and will be connected to her documented in this encounter Plan of Treatment Upcoming Encounters Date Type Department Care Team (Late st Contact Info) Description 08/27/2024 10:00 AM EDT Ancillary Procedure [facility] - [address] [place] [address] 10/16/2024 1:15 PM EDT Office Visit Adult Medicine [place] [facility] [place] [address] [place] [address] Festus Vega MD [address] [place] [address] 04/17/2025 1:15 PM EST Office Visit Nephrology - [address] [phone] Malcolm Webb MD [address] [place] [address] documented as of this encounter Visit Diagnoses Not on filedocumented in this encounter Additional Health Concerns Assessment Noted Time PHQ-9 Depression Total Score: 0 04/07/19 25 12:23 PM EST documented as of this encounter Care Teams Director Trade Relationship Specialty Start Date End Date Festus Vega MD [address] [place] [address] PCP - General Internal Medicine 11/18/18 documented as of this encounter
--- NOTE | 2024-05-22 08:26 | MHC.AU.HA1 ---
Hearing Aid Evaluation Date of Visit: 05/21/24 Historical Information: Description of Hearing: Within normal gradually sloping to moderately severe sensorineural hearing loss, bilateral. Current personal amplification information, if applicable: None. Summary: Jimmy reports willingness to proceed with amplification for his 's benefit. Reviewed performance levels and costs, batteries vs. rechargeable. Jimmy selected private level, rechargeable. Discussed maintenance needs for hearing aids. He opted out of the service plan. He has an Android phone that he may like to pair his hearing aids with at some point. He will be seeking reimbursement from his insurance. Hearing Aid Prescription: Based on the individual?s shared listening needs, communication environments, dexterity, desire for connectivity, and personal preferences, the following prescription for amplification has been made: Right ear: Make, Model, Color: Phonak Audeo I 30 R, champagne Battery Size: Rechargeable Try On Baster/Slim Tube: 2 M Type of Earmold/Dome/CShell/SlimTip: med vented Left ear: Make, Model, Color: Phonak I 30 Champagne Battery Size: Rechargeable Try On Baster/Slim Tube: 2 M Type of Earmold/Dome/CShell/SlimTip: med vented Plan of Care: Patient wishes to purchase hearing aids as prescribed Action Taken/Action Needed: Hearing Instrument Fitting to be scheduled when materials arrive Comments: PCP has not returned medical clearance yet, Jimmy is going to follow up with PCP. Primary Diagnosis: H90.3 Bilateral Sensorineural Hearing Loss Signature: Provider: Leonides Morales, [facility]
== END 2024-05-21 15:00 | disposition home or self-care (01) ==
LOC: HO.HAP 14:59
PROVIDERS: Visit Provider Internal Medicine
DX: Z46.1 Encounter for fitting and adjustment of hearing aid (principal); H90.3 Sensorineural hearing loss, bilateral
CPT/HCPCS: 92590; 92591

== ENCOUNTER 2024-06-13 14:16 | Outpatient (REF) | payer SELFPAY ==
--- NOTE | 2024-06-13 16:21 | MHC.AU.HA2 ---
Hearing Instrument Fitting- Adult- Binaural Date of Visit: 06/13/24 Hearing Instruments Dispensed: Right Ear: Make, Model, Color, Serial Number: Phonak Audeo I 30 Rpipo#[id number] Outside Medical Sales Representative Repair Warranty: 06/28/2027 Outside Medical Sales Representative Loss and Damage Warranty: 06/28/2027 [facility] Service Plan: n/a Battery Size: Rechargeable Trampoline Team Coach/Slim Tube: 2 M w/ tail Earmold/Dome/CShell/SlimTip: sm vented Type of Wax Guard: Cerustop Left Ear: Make, Model, Color, Serial Number: Phonak I 30 Pipo Hutton#[id number] Outside Medical Sales Representative Repair Warranty: 06/28/2027 Outside Medical Sales Representative Loss and Damage Warranty: 06/28/2027 [facility] Service Plan: n/a Battery Size: Rechargeable Trampoline Team Coach/Slim Tube: 2 M w/tail Earmold/Dome/CShell/SlimTip: sm vented Type of Wax Guard: Cerustop Accessories/Assistive Technology: Phonak Carpenter Foreman CURLY S#[id number] Summary of Fitting: Fit with and oriented to binaural Phonak Audeo I 30 HAs. Verified to L adult 5 targets. Reviewed charging, maintenance, precautions. Practiced insertion and removal. Counseled on adjustment to amplification. Good subjective comfort and benefit reported. VC disabled at this time. Not paired with a phone at this time. Provided itemized receipt. Recommendations: Recommendations: A hearing instrument follow-up was scheduled. Diagnosis Code(s): Primary Diagnosis: H90.3 Bilateral Sensorineural Hearing Loss Signature: Provider: Leonides Morales, [facility]
--- OUTSIDE RECORDS SUMMARY | 2024-06-13 17:09 | XMS_ITS | Clinical Summary ---
Author Organization [facility] [address] [place] [address] Address [address] [place] [address] Phone Care Team Providers Care Machine Shop Worker Name Role Phone Festus Vega MD Primary Care Provider [phone] Allergies Active Allergy Reactions Criticality Noted Date [...] Elevated PSA 12/31/2009 Overview (12/31/2023): Follows with [facility] 6 mth basis. Negative biopsy in [...] Encounters Date Type Department Care Team Description 05/24/2024 Telephone Adult Medicine [address] [phone] Meliza Vaz, MEG Faxed Order ([facility] Speech & Hearing Medical Clearance for Hearing Instrumentation Order 05/01/24) 05/15/2024 Telephone Adult [address] [phone] Festus Vega MD Advice Only; Forms/questionnaires 04/11/2024 4:30 PM EST Office Visit Nephrology [address] [phone] Malcolm Webb MD Stage 3a chronic kidney disease (CMS/HCC) (Primary Dx); Hypertension, unspecified type 04/10/2024 3:42 PM EST - 04/10/2024 11:59 PM EST Hospital Encounter XRAY [address] [phone] Pain of right hip Discharge Disposition: Home or Self Care 04/10/2024 3:00 PM EST Office Visit Adult [address] [phone] Festus Vega MD Encounter for subsequent annual [...] Date Site/Laterality Comments KNEE ARTHROSCOPY 1970 PROCEDURE: ID ARTHROSCOPY KNEE DIAGNOSTIC W/WO SYNOVIAL BX SPX OTHER SURGICAL HISTORY PROCEDURE: ---- OTHER ----; COMMENT: stent for kidney stone COLONOSCOPY 10/15/2014 PROCEDURE: HISTORICAL COLONOSCOPY; COMMENT: dim polyps in the RC x 5: Tubular adenoma x5. MULTIPLE TOOTH EXTRACTIONS PROCEDURE: HISTORICAL DENTAL EXTRACTION UPPER GASTROINTESTINAL ENDOSCOPY 06/23/2010 PROCEDURE: ID UPPER GI ENDOSCOPY PERFORMED; COMMENT: normal on [...] Description 08/27/2024 10:00 AM EDT Ancillary Procedure [facility] - [address] [place] [address] 10/16/2024 1:15 PM EDT Office Visit Adult Medicine South - [address] [phone] Festus Vega MD [address] [place], [place] 04/17/2025 1:15 PM EST Office Visit Nephrology - [address] [phone] Malcolm Webb MD [address] [facility] [address] [place] [phone] Health Maintenance Due Date Last Done Comments [...] mmol/L LAB CHEMISTRY METHOD 04/10/2024 6:45 PM EST [facility] Potassium 4.1 3.5 - 5.5 mmol/L LAB CHEMISTRY METHOD 04/10/2024 6:45 PM EST [facility] Chloride 104 96 - 110 mmol/L LAB CHEMISTRY METHOD 04/10/2024 6:45 PM EST [facility] CO2 30 21 - 32 mmol/L LAB CHEMISTRY METHOD 04/10/2024 6:45 PM [facility] Anion Gap 4 3 - 11 LAB CHEMISTRY METHOD 04/10/2024 6:45 PM [facility] Glucose 93 70 - 100 mg/dL LAB CHEMISTRY METHOD 04/10/2024 6:45 PM [facility] BUN 20 5 - 25 mg/dL LAB CHEMISTRY METHOD 04/10/2024 6:45 PM [facility] Creatinine 1.44(H) 0.70 - 1.30 mg/dL LAB CHEMISTRY METHOD 04/10/2024 6:45 PM [facility] eGFR 48(L) >=60 mL/min/1. 73m2 LAB CHEMISTRY METHOD 04/10/2024 6:45 PM [facility] Comment:Calculation based on the??Chronic Kidney Disease Epidemiology Collaboration (CKD-EPI) equation refit??without adjustment for race. BUN/Creatinine Ratio 13.9 LAB CHEMISTRY METHOD 04/10/2024 6:45 PM [facility] Calcium 8.6 8.5 - 10.5 mg/dL LAB CHEMISTRY METHOD 04/10/2024 6:45 PM [facility] AST (SGOT) 29 10 - 42 unit/L LAB CHEMISTRY METHOD 04/10/2024 6:45 PM [facility] ALT (SGPT) 49 10 - 60 unit/L LAB CHEMISTRY METHOD 04/10/2024 6:45 PM [facility] Alkaline Phosphatase 53 42 - 121 unit/L LAB CHEMISTRY METHOD 04/10/2024 6:45 PM [facility] Total Protein 8.0 6.0 - 8.0 g/dL LAB CHEMISTRY METHOD 04/10/2024 6:45 PM [facility] Albumin 3.8 3.2 - 5.0 g/dL LAB CHEMISTRY METHOD 04/10/2024 6:45 PM [facility] Total Bilirubin 0.5 0.0 - 1.4 mg/dL LAB CHEMISTRY METHOD 04/10/2024 6:45 PM EST [facility] Blood Venous blood specimen / Unknown Venipuncture / Unknown 04/10/2024 4:07 PM EST 04/10/2024 4:07 PM EST us Festus Vega MD LAB BLOOD ORDERABLES Final Resu lt [facility] [address] [place] [address], * XR Hip 2-3 Views Right (04/10/2024 [...] Signed Date: 04/10/2024 16:44 ET Workstation ID: [id number] Transcribed By: Self Edit Transcribed Date: 04/10/2024 [...] Signed Date: 04/10/2024 16:44 ET Workstation ID: [id number] Transcribed By: Self Edit Transcribed Date: 04/10/2024 16:39 ET Festus Vega MD IMG XR PROCEDURES Final Result * Falls Risk Assessment (08/08/2023) [facility] Falls Risk Assessment abstracted Result [facility] Historical Yolanda DIAZ HEALTH MAINTENANCE Final Result * (ABNORMAL) Lipid panel (08/08/2023) [facility] LDL/HDL Ratio 4 0 - 4 Triglycerides 293(A) 0 - 150 mg/dL Cholesterol 117 0 - 200 mg/dL HDL 30(A) >=40 mg/dL LDL Cholesterol 29 0 - 100 mg/dL Blood Venous blood specimen / Unknown Result [facility] Historical Yolanda DIAZ LAB BLOOD ORDERABLES Nella l Result * Depression Screening (02/01/2023) Pathologist [facility] Depression Screening abstracted Result [facility] Historical Yolanda DIAZ HEALTH MAINTENANCE Final Result from Last 3 Months or Most Recently Relevant to Health Maintenance Insurance MEDICARE [employer] Advance Directives * Full Code - Confirmed (Latest Code Status on File) Date Activated Date Inactivated Comments 04/10/2024 3:32 PM This code stat us was ascertained in the following way: Code status discussion: discussion with patient To update the patient's code status, place a code status order. Do not modify or discontinue any currently active code status orders. Care Teams Machine Shop Worker Relationship Specialty Start Date End Date Festus Vega MD [address] [place] [id number] PCP - General Internal Medicine 11/18/18
--- OUTSIDE RECORDS SUMMARY | 2024-06-13 17:09 | XMS_ITS | Encounter Summary ---
Author Organization [facility] Address [address] [place] [address] Care Team Providers Care Top Precipitator Operator Name Role Phone Festus Vega MD Primary Care Provider [phone] Reason for Visit * Reason Onset Date Comments Advice Only 05/15/2024 Forms/questionnaires 05/15/2024 Encounter Details Date Type Department Care Team (Late st Contact Info) Description 05/15/2024 Telephone Adult Medicine [address] [phone] Festus Vega MD [address] [place] [phone] Advice Only; Forms/questionnaires Social History Tobacco Use [...] as of this encounter Progress Notes * aJna Terrazas MA - 06/05/2024 3:36 PM EDT This was done on 05/23/24. * Tate Prudence - 05/15/2024 1:44 PM EST Call from [facility] audiology - Stating they had faxed over [...] Description 08/27/2024 10:00 AM EDT Ancillary Procedure [facility] - [address] [place] [address] 10/16/2024 1:15 PM EDT Office Visit Adult Medicine South - [address] [phone] Festus Vega MD [address] [place] [address] 04/17/2025 1:15 PM EST Office Visit Nephrology - [address] [phone] Malcolm Webb MD [address] [place] [address] documented as of this encounter Visit Diagnoses Not on filedocumented in this encounter Additional Health Concerns Assessment Noted Time PHQ-9 Depression Total Score: 0 04/07/19 12:23 PM EST documented as of this encounter Care Teams Top Precipitator Operator Relationship Specialty Start Date End Date Festus Vega MD [address] [place] [address] PCP - General Internal Medicine 11/18/18 documented as of this encounter
--- OUTSIDE RECORDS SUMMARY | 2024-06-13 17:09 | XMS_ITS | Encounter Summary ---
Author Organization [facility] Address [address] [place] [address] Care Team Providers Care Typing Checker Name Role Phone Festus Vega MD Primary Care Provider [phone] Reason for Visit * Reason Onset Date Comments Faxed Order 05/24/2024 [facility] Speech & Hea ring Medical Clearance for Hearing Instrumentation Order 05/01/24 Encounter Details Date Type Department Care Team (Late st Contact Info) Description 05/24/2024 Telephone Adult Medicine [address] [phone] Meliza Vaz, MEG Faxed Order ([facility] Speech & Hearing Medical Clearance for Hearing Instrumentation Order 05/01/24) Social History Tobacco Use Types Packs/Day Years [...] as of this encounter Progress Notes * Marcela Foss MA - 05/29/2024 11:45 AM EDT [facility] order signed by provider,faxed,confirmation received * Meliza Vaz RN - 05/24/2024 5:02 PM EST Received [facility] Speech & Hearing Medical Clearance for Hearing Instrumentation Order 05/01/24. Please sign and fax to [phone]. documented in this encounter Plan of Treatment Upcoming Encounters Date Type Department Care Team (Late st Contact Info) Description 08/27/2024 10:00 AM EDT Ancillary Procedure [facility] - [address] [place] [address] 10/16/2024 1:15 PM EDT Office Visit Adult Medicine South - [address] [phone] Festus Vega MD [address] [place] [address] 04/17/2025 1:15 PM EST Office Visit Nephrology - [address] [phone] Malcolm Webb MD [address] [place] [address] documented as of this encounter Visit Diagnoses Not on filedocumented in this encounter Additional Health Concerns Assessment Noted Time PHQ-9 Depression Total Score: 0 04/07/19 25 12:23 PM EST documented as of this encounter Care Teams Typing Checker Relationship Specialty Start Date End Date Festus Vega MD [address] [place] [address] PCP - General Internal Medicine 11/18/18 documented as of this encounter
== END 2024-06-13 14:17 | disposition home or self-care (01) ==
LOC: HO.HAP 14:16
PROVIDERS: Visit Provider Internal Medicine
DX: Z46.1 Encounter for fitting and adjustment of hearing aid (principal); H90.3 Sensorineural hearing loss, bilateral
CPT/HCPCS: V5261; V5299

== ENCOUNTER 2024-06-15 13:15 | Outpatient (REF) | payer SELFPAY ==
--- NOTE | 2024-06-15 14:16 | MHC.AU.HA3 ---
Hearing Instrument Follow-Up- Binaural Date of Visit: 06/15/24 Right Ear: Oleksandr, Model, Color, Serial Number: pipo Galvez#[id number] Freelance Art Director Repair Warranty: 06/28/2027 Freelance Art Director Loss and Damage Warranty: 06/28/2027 [facility] Service Plan: n/a Battery Size: Rechargeable Application Developer Manager/Slim Tube: 2 M w/ tail Earmold/Dome/CShell/SlimTip:cap Type of Wax Guard: Cerustop Dispensed By: [facility] Date of Fittin06/13/24 Left Ear: Oleksandr, Model, Color, Serial Number: Wan Hutton#[id number] Freelance Art Director Repair Warranty: 06/28/2027 Freelance Art Director Loss and Damage Warranty: 06/28/2027 [facility] Service Plan: n/a Battery Size: Rechargeable Application Developer Manager/Slim Tube: 2 M w/tail Earmold/Dome/CShell/SlimTip: sm vented Type of Wax Guard: Cerustop Dispensed By: [facility] Date of Fittin06/13/24 Follow-Up Summary: Jimmy reports the right hearing is not working as of this morning. Also notes right is harder to get in than left. Found wax guard occluded. Changed, listening check positive. Tried a cap dome on the right, improved ease of insertion reported. Reports it feels comfortable and secure. Return for follow up as previously scheduled. Recommendations: Recommendations Return as scheduled. Diagnosis Code(s): Primary Diagnosis: H90.3 Bilateral Sensorineural Hearing Loss Signature: Provider: Leonides Morales, [facility]
== END 2024-06-15 13:16 | disposition home or self-care (01) ==
LOC: HO.HAP 13:15
PROVIDERS: Visit Provider Internal Medicine
DX: Z13.89 Encounter for screening for other disorder (principal)

== ENCOUNTER 2024-07-04 15:47 | Outpatient (REF) | payer SELFPAY ==
--- NOTE | 2024-07-04 16:46 | MHC.AU.HA3 ---
Hearing Instrument Follow-Up- Binaural Date of Visit: 07/04/24 Right Ear: Oleksandr, Model, Color, Serial Number: pipo Galvez#[id number] Faucets Assembler Repair Warranty: 06/28/2027 Faucets Assembler Loss and Damage Warranty: 06/28/2027 [facility] Service Plan: n/a Battery Size: Rechargeable Machine Grainer/Slim Tube: 2 M w/ tail Earmold/Dome/CShell/SlimTip:cap Type of Wax Guard: Cerustop Dispensed By: [facility] Date of Fittin06/13/24 Left Ear: Oleksandr, , Color, Serial Number: Wan Hutton#[id number] Faucets Assembler Repair Warranty: 06/28/2027 Faucets Assembler Loss and Damage Warranty: 06/28/2027 [facility] Service Plan: n/a Battery Size: Rechargeable Machine Grainer/Slim Tube: 2 M w/tail Earmold/Dome/CShell/SlimTip: sm vented Type of Wax Guard: Cerustop Dispensed By: [facility] Date of Fittin06/13/24 Follow-Up Summary: Seen for follow up. Reports fit has been better since changes made at last visit. Reports that he changed domes and wax guards himself today to make sure he could do it. Notes the hearing aids are working well for him, he is hearing his better. No concerns at this time. Recommendations: Recommendations: Hearing instrument follow-up or maintenance as needed. Diagnosis Code(s): Primary Diagnosis: H90.3 Bilateral Sensorineural Hearing Loss Signature: Provider: Leonides Morales, [facility]
--- OUTSIDE RECORDS SUMMARY | 2024-07-04 18:08 | XMS_ITS | Clinical Summary ---
Author Organization [facility] [address] [facility] Address [address] [place] [address] Phone Care Team Providers Care Medical Director Name Role Phone Festus Vega MD Primary Care Provider [phone] Allergies Active Allergy Reactions Criticality Noted Date [...] 1 (one) time each day. 4 Active GLUCOSAM-CHOND- HYALU-CF BORATE ORAL Take by mouth. Activ e multivitamin,th er and minerals (VITAMINS AND MINERALS ORAL) Take [...] at bedtime. 90 each 1 5 Active Active Problems Problem Noted Date Diagnosed Date BPH (benign prostatic hyperplasia) 2021 Mixed hyperlipidemia 08/23/2017 Aortic dilatation ([facility] V24) 10/03/2016 Overview (12/31/2023): 4.5 cm on CAT scan of 09/24/2016 CKD (chronic kidney disease) stage 3, GFR 30-59 ml/min ([facility] V24, [facility] V28) 07/13/2013 Overview (12/31/2023): GFR 58 on 02/05/13. HTN (hypertension) 12/15/2011 Dysphagia 12/31/2009 Elevated PSA 12/31/2009 Overview (12/31/2023): Follows with [facility] 6 mth basis. Negative biopsy in [...] Encounters Date Type Department Care Team Description 06/26/2024 Telephone [facility] - [facility] [address] [facility] [address] [place] [address] Jnanette Nelson [place] Pre-Op Colonoscopy w/Dr. Meza at [facility] 05/24/2024 Telephone Adult Medicine [address] [phone] Meliza Vaz RN Faxed Order ([facility] Speech & Hearing Medical Clearance for Hearing Instrumentation Order 05/01/24) 05/15/2024 Telephone Adult [address] [phone] Festus Vega MD Advice Only; Forms/questionnaires 04/11/2024 4:30 PM EST Office Visit Nephrology [address] [phone] Malcolm Webb MD Stage 3a chronic kidney disease (CMS/HCC V24, CMS/HCC V28) (Primary Dx); Hypertension, unspecified type 04/10/2024 3:42 PM EST - 04/10/2024 11:59 PM EST Hospital Encounter XRAY [address] [phone] Pain of right hip Discharge Disposition: Home or Self Care 04/10/2024 3:00 PM EST Office Visit Adult [address] [phone] Festus Vega MD Encounter for subsequent annual wellness visit (AWV) in Medicare patient (Primary Dx); Stage 3a chronic kidney disease (CMS/HCC V24, CMS/HCC V28); Primary hypertension; Pruritus; Hearing loss of right ear, unspecified hearing loss type; Pain of right hip; Aortic dilatation (CMS/HCC V24) from Last 3 Months Immunizations Name Administration [...] Date Site/Laterality Comments KNEE ARTHROSCOPY 1970 PROCEDURE: [place] ARTHROSCOPY KNEE DIAGNOSTIC W/WO SYNOVIAL BX SPX OTHER SURGICAL HISTORY PROCEDURE: ---- OTHER ----; COMMENT: stent for kidney stone COLONOSCOPY 10/15/2014 PROCEDURE: HISTORICAL COLONOSCOPY; COMMENT: dim polyps in the RC x 5: Tubular adenoma x5. MULTIPLE TOOTH EXTRACTIONS PROCEDURE: HISTORICAL DENTAL EXTRACTION UPPER GASTROINTESTINAL ENDOSCOPY 06/23/2010 PROCEDURE: [place] UPPER GI ENDOSCOPY PERFORMED; COMMENT: normal on [...] Description 08/27/2024 10:00 AM EDT Ancillary Procedure [facility] - [address] [place] [address] 10/16/2024 1:15 PM EDT Office Visit [facility] [place] [address] [place] [address] Festus Vega MD [address] [place], [place] 04/17/2025 1:15 PM EST Office Visit Nephrology - [address] [phone] Malcolm Webb MD [address] [facility] [address] [place] [address] Health Maintenance Due Date Last Done Comments RSV Immunization Adult Patients (1 - 1-dose 75+ series) 02/10/2016 Social Influencers of Health Screening 02/27/2022 DTaP,Tdap,and Td Vaccines (4 - Td or Tdap) 02/05/2023 02/05/2013, 01/01/2011, 04/08/2000 COVID-19 Vaccine (8 - Moderna risk season) 2024 12/22/2023, 01/26/2023, 12/08/2021, Additional history exists Depression Screening 04/07/2025 04/07/2024, 02/02/20 23 Falls Risk Assessment 04/10/2025 04/10/2024, 024 Hypertension/CHF/CAD Annual BMP Blood Test 04/10/2025 04/10/2024, 08/08/2023, 08/08/2023, Additional history exists Medicare Annual Wellness Visit 04/10/2025 04/10/2024 Cholesterol Screening (Lipid Panel) 08/07/2028 08/08/2023, 08/08/2023 Pneumococcal Vaccine: 50+ Years Completed 08/19/2015, 08/08/2013, 01/07/2006 Zoster Vaccines Completed 03/24/2020, 01/21/2020 Influenza Vaccine Completed 12/22/2023, , 12/08/2021, Additional [...] age to complete this topic Meningococcal B Vaccine Aged Out No l onger eligible based on patient's age to complete [...] PM EST Stage 3a chronic kidney disease (CMS/HCC V24, CMS/HCC V28) Primary hypertension Pruritus XR HIP 2-3 VIEWS RIGHT Routine 5 3:52 PM EST Pain of right hip FALLS RISK ASSESSMENT Routine 08/08/2023 LIPID PANEL Routine 08/08/2023 DEPRESSION SCREENING Routine 02/01/2023 from Last 3 Months or Most Recently Relevant to Health Maintenance Results * (ABNORMAL) Comprehensive metabolic panel (04/10/2024 4:07 PM EST) Sodium 138 133 - 145 mmol/L LAB CHEMISTRY METHOD 04/10/2024 6:45 PM EST [facility] Potassium 4.1 3.5 - 5.5 mmol/L LAB CHEMISTRY METHOD 04/10/2024 6:45 PM [facility] Chloride 104 96 - 110 mmol/L LAB CHEMISTRY METHOD 04/10/2024 6:45 PM [facility] CO2 30 21 - 32 mmol/L LAB CHEMISTRY METHOD 04/10/2024 6:45 PM [facility] Anion Gap 4 3 - 11 LAB CHEMISTRY METHOD 04/10/2024 6:45 PM [facility] Glucose 93 70 - 100 mg/dL LAB CHEMISTRY METHOD 04/10/2024 6:45 PM [facility] BUN 20 5 - 25 mg/dL LAB CHEMISTRY METHOD 04/10/2024 6:45 PM [facility] Creatinine 1.44(H) 0.70 - 1.30 mg/dL LAB CHEMISTRY METHOD 04/10/2024 6:45 PM [facility] eGFR 48(L) >=60 mL/min/1. 73m2 LAB CHEMISTRY METHOD 04/10/2024 6:45 PM [facility] Comment:Calculation based on the??Chronic Kidney Disease Epidemiology Collaboration (CKD-EPI) equation refit??without adjustment for race. BUN/Creatinine Ratio 13.9 LAB CHEMISTRY METHOD 04/10/2024 6:45 PM [facility] Calcium 8.6 8.5 - 10.5 mg/dL LAB CHEMISTRY METHOD 04/10/2024 6:45 PM [facility] AST (SGOT) 29 10 - 42 unit/L LAB CHEMISTRY METHOD 04/10/2024 6:45 PM [facility] ALT (SGPT) 49 10 - 60 unit/L LAB CHEMISTRY METHOD 04/10/2024 6:45 PM [facility] Alkaline Phosphatase 53 42 - 121 unit/L LAB CHEMISTRY METHOD 04/10/2024 6:45 PM [facility] Total Protein 8.0 6.0 - 8.0 g/dL LAB CHEMISTRY METHOD 04/10/2024 6:45 PM EST [facility] Albumin 3.8 3.2 - 5.0 g/dL LAB CHEMISTRY METHOD 04/10/2024 6:45 PM EST [facility] Total Bilirubin 0.5 0.0 - 1.4 mg/dL LAB CHEMISTRY METHOD 04/10/2024 6:45 PM EST [facility] Blood Venous blood specimen / Unknown Venipuncture / Unknown 04/10/2024 4:07 PM EST 04/10/2024 4:07 PM EST us Festus Vega MD LAB BLOOD ORDERABLES Final Resu lt [facility] [address] [place] [address], [place] [phone] * XR Hip 2-3 Views Right (04/10/2024 [...] Signed Date: 04/10/2024 16:44 ET Workstation ID: [id number] Transcribed By: Self Edit Transcribed Date: 04/10/2024 [...] Signed Date: 04/10/2024 16:44 ET Workstation ID: [id number] Transcribed By: Self Edit Transcribed Date: 04/10/2024 16:39 ET Festus Vega MD IMG XR PROCEDURES Final Result * Falls Risk Assessment (08/08/2023) [facility] Falls Risk Assessment abstracted Historical Provider HEALTH MAINTENANCE Final Result * (ABNORMAL) Lipid panel (08/08/2023) [facility] LDL/HDL Ratio 4 0 - 4 Triglycerides 293(A) 0 - 150 mg/dL Cholesterol 117 0 - 200 mg/dL HDL 30(A) >=40 mg/dL LDL Cholesterol 29 0 - 100 mg/dL Blood Venous blood specimen / Unknown Historical Provider LAB BLOOD ORDERABLES Nella l Result * Depression Screening (02/01/2023) Pathologist [facility] Depression Screening abstracted Historical Provider HEALTH MAINTENANCE Final Result from Last 3 Months or Most Recently Relevant to Health Maintenance Insurance MEDICARE [facility] Advance Directives * Full Code - Confirmed (Latest Code Status on File) Date Activated Date Inactivated Comments 04/10/2024 3:32 PM This code stat us was ascertained in the following way: Code status discussion: discussion with patient To update the patient's code status, place a code status order. Do not modify or discontinue any currently active code status orders. Care Teams Medical Director Relationship Specialty Start Date End Date Festus Vega MD [address] [place] [address] PCP - General Internal Medicine 11/18/18
--- OUTSIDE RECORDS SUMMARY | 2024-07-04 18:08 | XMS_ITS | Encounter Summary ---
Author Organization [facility] Address [address] [place] [address] Care Team Providers Care Radiosonde Specialist Name Role Phone Festus Vega MD Primary Care Provider [phone] Reason for Visit * Reason Onset Date Comments Pre-Op Colonoscopy w/Dr. Meza at [facility] 06/26/2024 Encounter Details Date Type Department Care Team (Late st Contact Info) Description 06/26/2024 Telephone [facility] - [facility] [address] [facility] [address] [place] [address] [place], [place] Pre-Op Colonoscopy w/Dr. Meza at [facility] Social History Tobacco Use Types Packs/Day Years [...] as of this encounter Progress Notes * Carlos Good MA - 07/03/2024 10:08 AM EDT I did try to reach rebecca at the # below but I did not get ahold of her. I will fax this message to her attention at fax # below. Thank you. * Serena Love NP - 06/27/2024 1:03 PM EDT There is no clearance warranted prior to colonoscopy. * Jannette Nelson MA - 06/26/2024 8:57 AM EDT Rebecca from Dr. Meza's office called regarding clearance for colonoscopy scheduled for 07/12/24 at [facility]. Rebecca can be reached at [phone]. Fax #: [phone]. ROHIT w/CR 09/02/23, F/U in 1 year: August. He is currently scheduled to have an echo on 08/27/24. documented in this encounter Plan of Treatment Upcoming Encounters Date Type Department Care Team (Late st Contact Info) Description 08/27/2024 10:00 AM EDT Ancillary Procedure [facility] - [facility] [address] [facility] [address] [place] [address] 10/16/2024 1:15 PM EDT Office Visit Adult Medicine [facility] - [address] [phone] Festus Vega MD [address] [place] [address] 04/17/2025 1:15 PM EST Office Visit Nephrology - [address] [phone] Malcolm Webb MD [address] [place] [address] documented as of this encounter Visit Diagnoses Not on filedocumented in this encounter Additional Health Concerns Assessment Noted Time PHQ-9 Depression Total Score: 0 04/07/19 25 12:23 PM EST documented as of this encounter Care Teams Radiosonde Specialist Relationship Specialty Start Date End Date Festus Vega MD [address] [place] [id number] PCP - General Internal Medicine 11/18/18 documented as of this encounter
== END 2024-07-04 15:48 | disposition home or self-care (01) ==
LOC: HO.HAP 15:47
PROVIDERS: Visit Provider Internal Medicine
DX: Z13.89 Encounter for screening for other disorder (principal)

== ENCOUNTER 2024-07-12 09:15 | Day surgery (SDC) | payer SELFPAY ==
[2024-07-10 09:50] VITALS: BMI 29.2
--- OUTSIDE RECORDS SUMMARY | 2024-07-11 08:27 | XMS_ITS | Clinical Summary ---
Author Organization [facility] [address] [facility] Address [address] [place] [address] Phone Care Team Providers Care Sports Statistician Name Role Phone Festus Vega MD Primary Care Provider [phone] Allergies Active Allergy Reactions Criticality Noted Date [...] hyperplasia) 2021 Mixed hyperlipidemia 08/23/2017 Aortic dilatation ([facility] V24) 10/03/2016 Overview (12/31/2023): 4.5 cm on CAT scan of 09/24/2016 CKD (chronic kidney disease) stage 3, GFR 30-59 ml/min ([facility] V24, [facility] V28) 07/13/2013 Overview (12/31/2023): GFR 58 on 02/05/13. HTN (hypertension) 12/15/2011 Dysphagia 12/31/2009 Elevated PSA 12/31/2009 Overview (12/31/2023): Follows with [facility] 6 mth basis. Negative biopsy in [...] Type Department Care Team Description 06/26/2024 Telephone [facility] - [facility] [address] [facility] [address] [place] [address] Jannette Nelson [place] Pre-Op Colonoscopy w/Dr. Meza at [facility] 05/24/2024 Telephone Adult Medicine [facility] [address] [place] [address] Meliza Vaz RN Faxed Order ([facility] Speech & Hearing Medical Clearance for Hearing Instrumentation Order 05/01/24) 05/15/2024 Telephone Adult Medicine [facility] [address] [place] [address] Festus Vega MD Advice Only; Forms/questionnaires from Last 3 Months Immunizations Name Administration [...] Date Site/Laterality Comments KNEE ARTHROSCOPY 1970 PROCEDURE: [place] ARTHROSCOPY KNEE DIAGNOSTIC W/WO SYNOVIAL BX SPX OTHER SURGICAL HISTORY PROCEDURE: ---- OTHER ----; COMMENT: stent for kidney stone COLONOSCOPY 10/15/2014 PROCEDURE: HISTORICAL COLONOSCOPY; COMMENT: dim polyps in the RC x 5: Tubular adenoma x5. MULTIPLE TOOTH EXTRACTIONS PROCEDURE: HISTORICAL DENTAL EXTRACTION UPPER GASTROINTESTINAL ENDOSCOPY 06/23/2010 PROCEDURE: [place] UPPER GI ENDOSCOPY PERFORMED; COMMENT: normal on [...] Description 08/27/2024 10:00 AM EDT Ancillary Procedure [facility] - [facility] [address] [facility] [address] [place] [address] 10/16/2024 1:15 PM EDT Office Visit Adult Medicine [facility] - [address] [phone] Festus Vega MD [address] [place] [address] 04/17/2025 1:15 PM EST Office Visit Nephrology - [address] [phone] Malcolm Webb MD 100 [facility] [address] [place] [address] Health Maintenance Due Date Last Done Comments [...] PM EST Stage 3a chronic kidney disease ([facility] V24, [facility] V28) Primary hypertension Pruritus FALLS RISK ASSESSMENT Routine 08/08/2023 LIPID PANEL Routine 08/08/2023 DEPRESSION SCREENING Routine 02/01/2023 from Last 3 Months or Most Recently Relevant to Health Maintenance Results * (ABNORMAL) Comprehensive metabolic panel (04/10/2024 4:07 PM EST) Sodium 138 133 - 145 mmol/L LAB CHEMISTRY METHOD 04/10/2024 6:45 PM [facility] Potassium 4.1 3.5 - 5.5 mmol/L LAB CHEMISTRY METHOD 04/10/2024 6:45 PM [facility] Chloride 104 96 - 110 mmol/L LAB CHEMISTRY METHOD 04/10/2024 6:45 PM [facility] CO2 30 21 - 32 mmol/L LAB CHEMISTRY METHOD 04/10/2024 6:45 PM [facility] Anion Gap 4 3 - 11 LAB CHEMISTRY METHOD 04/10/2024 6:45 PM [facility] Glucose 93 70 - 100 mg/dL LAB CHEMISTRY METHOD 04/10/2024 6:45 PM [facility] BUN 20 5 - 25 mg/dL LAB CHEMISTRY METHOD 04/10/2024 6:45 PM [facility] Creatinine 1.44(H) 0.70 - 1.30 mg/dL LAB CHEMISTRY METHOD 04/10/2024 6:45 PM [facility] eGFR 48(L) >=60 mL/min/1. 73m2 LAB CHEMISTRY METHOD 04/10/2024 6:45 PM [facility] Comment:Calculation based on the??Chronic Kidney Disease Epidemiology Collaboration (CKD-EPI) equation refit??without adjustment for race. BUN/Creatinine Ratio 13.9 LAB CHEMISTRY METHOD 04/10/2024 6:45 PM [facility] Calcium 8.6 8.5 - 10.5 mg/dL LAB CHEMISTRY METHOD 04/10/2024 6:45 PM [facility] AST (SGOT) 29 10 - 42 unit/L LAB CHEMISTRY METHOD 04/10/2024 6:45 PM [facility] ALT (SGPT) 49 10 - 60 unit/L LAB CHEMISTRY METHOD 04/10/2024 6:45 PM [facility] Alkaline Phosphatase 53 42 - 121 unit/L LAB CHEMISTRY METHOD 04/10/2024 6:45 PM [facility] Total Protein 8.0 6.0 - 8.0 g/dL LAB CHEMISTRY METHOD 04/10/2024 6:45 PM [facility] Albumin 3.8 3.2 - 5.0 g/dL LAB CHEMISTRY METHOD 04/10/2024 6:45 PM [facility] Total Bilirubin 0.5 0.0 - 1.4 mg/dL LAB CHEMISTRY METHOD 04/10/2024 6:45 PM [facility] Blood Venous blood specimen / Unknown Venipuncture / Unknown 04/10/2024 4:07 PM EST 04/10/2024 4:07 PM EST Festus Vega MD LAB BLOOD ORDERABLES Final Resu lt [facility] [address] [place] [address], * Hm Falls Risk Assessment (08/08/2023) Falls Risk Assessment abstracted Historical Provider HEALTH MAINTENANCE Final Result * (ABNORMAL) Lipid panel (08/08/2023) LDL/HDL Ratio 4 0 - 4 Triglycerides 293(A) 0 - 150 mg/dL Cholesterol 117 0 - 200 mg/dL HDL 30(A) >=40 mg/dL LDL Cholesterol 29 0 - 100 mg/dL Blood Venous blood specimen / Unknown Historical Provider LAB BLOOD ORDERABLES Nella l Result * Depression Screening (02/01/2023) Depression Screening abstracted us Historical Provider HEALTH MAINTENANCE Final Result from Last 3 Months or Most Recently Relevant to Health Maintenance Insurance [facility] [place] [id number] MEDICARE [facility] Advance Directives * Full Code - Confirmed (Latest Code Status on File) Date Activated Date Inactivated Comments 04/10/2024 3:32 PM This code stat us was ascertained in the following way: Code status discussion: discussion with patient To update the patient's code status, place a code status order. Do not modify or discontinue any currently active code status orders. Care Teams Sports Statistician Relationship Specialty Start Date End Date Festus Vega MD [address] [place] [address] PCP - General Internal Medicine 11/18/18
--- OUTSIDE RECORDS SUMMARY | 2024-07-11 08:27 | XMS_ITS | Encounter Summary ---
Author Organization [facility] Address [address] [place] [address] Care Team Providers Care Director Wholesale Name Role Phone Festus Vega MD Primary Care Provider [phone] Reason for Visit * Reason Onset Date Comments Pre-Op Colonoscopy w/Dr. Meza at [facility] 06/26/2024 Encounter Details Date Type Department Care Team (Late st Contact Info) Description 06/26/[address] [facility] - [facility] [address] [facility] [address] [place] [address] [place], [place] Pre-Op Colonoscopy w/Dr. Meza at [facility] Social History Tobacco Use Types Packs/Day Years [...] clearance for colonoscopy scheduled for 07/12/24 at [facility]. Rebecca can be reached at [phone]. Fax #: [phone]. ROHIT w/CR 09/02/23, F/U in 1 year: August. He is currently scheduled to have an echo on 08/27/24. documented in this encounter Plan of Treatment Upcoming Encounters Date Type Department Care Team (Late st Contact Info) Description 08/27/2024 10:00 AM EDT Ancillary Procedure [facility] - [facility] [address] [facility] [address] [place] [phone] 10/16/2024 1:15 PM EDT Office Visit Adult Medicine [facility] - [address] [phone] Festus Vega MD [address] [place] [address] 04/17/2025 1:15 PM EST Office Visit Nephrology - [address] [phone] Malcolm Webb MD [address] [place] [address] documented as of this encounter Visit Diagnoses Not on filedocumented in this encounter Additional Health Concerns Assessment Noted Time PHQ-9 Depression Total Score: 0 04/07/19 25 12:23 PM EST documented as of this encounter Care Teams Director Wholesale Relationship Specialty Start Date End Date Festus Vega MD [address] [place] [address] PCP - General Internal Medicine 11/18/18 documented as of this encounter
--- NOTE | 2024-07-11 09:02 | P.CONAN_ITS ---
Documented by User: Priscilla Ritter NP 07/11/24 09:21 HPI - Anesthesia Eval Consult details Narrative: 84yo M for Colonoscopy AAA - follows [facility]. STable at 08/2023 office visit. AAA <4.9cm (Per Dr Lozano - overmeasured on Echo, stable on CT) [facility] Active Problems Active Problems: All Active Problems Aortic aneurysm (Acute) Family history of colonic polyps (Acute) Personal history of colonic polyps (Acute) Past Medical History Medical History Ascending aortic aneurysm GERD (gastroesophageal reflux disease) Hypertension BPH (benign prostatic hyperplasia) Family History Family History Other No family history of coronary artery disease Surgical History Surgical History History of esophagogastroduodenoscopy (EGD) Hx of colonoscopy Social History Social History Household Members: Significant Other Housing: House Do you presently have visiting nurse or other home services: No Alcohol intake: current Alcohol intake frequency: does not drink Patient Tobacco Use Status: Former Tobacco user Use of substances other than those prescribed or required for medical reasons: No Are you DNR?: No Advance Directives: No Advance Directives Information Provided: Yes Advance Directives Date on File: 11/12/21 service: No Current occupational status: retired Meds Allergies Allergy/AdvReac Type Severity Reaction Status Date / Time allopurinol [Allopurinol] Allergy Severe HIVES, rash Verified 02/06/24 11:20 oxycodone [Oxycodone] AdvReac Intermediate NAUSEA & Verified 02/06/24 11:20 VOMITING Home Medications ?Medication ?Instructions ?Recorded ?Confirmed ?Last Taken ?Type amlodipine 5 mg tablet 1 tab PO DAILY 11/11/21 07/10/24 Unknown History cholecalciferol (vitamin D3) 10 10 mcg PO DAILY 11/11/21 11/11/21 Unknown History mcg (400 unit) capsule (Vitamin D3) multivitamin 1 tab PO DAILY 11/11/21 07/10/24 Unknown History omeprazole 20 mg capsule,delayed 1 cap PO DAILY 11/11/21 07/10/24 Unknown History release pravastatin 20 mg tablet 1 tab PO DAILY 11/11/21 07/10/24 Unknown History amlodipine 2.5 mg tablet 2.5 mg PO DAILY 02/06/24 07/10/24 Unknown History febuxostat 40 mg tablet 40 mg PO DAILY 02/06/24 07/10/24 Unknown History Exam Height,Weight and Vital Signs: Height 5 ft 9 in Weight 89.811 kg Assessment and Plan Assessment Anesthesia Assessment: Chart Reviewed Documented by User: Philomena Blancas MD 07/12/24 11:01 [facility] Past Medical History Medical History Ascending aortic aneurysm GERD (gastroesophageal reflux disease) Hypertension BPH (benign prostatic hyperplasia) Family History Family History Other No family history of coronary artery disease Family history of problems with anesthesia: No Surgical History Surgical History History of esophagogastroduodenoscopy (EGD) Hx of colonoscopy History of Problems with Anesthesia: No Social History Social History Household Members: Significant Other Housing: House Do you presently have visiting nurse or other home services: No Alcohol intake: current Alcohol intake frequency: does not drink Patient Tobacco Use Status: Former Tobacco user Use of substances other than those prescribed or required for medical reasons: No Are you DNR?: No Advance Directives: No Advance Directives Information Provided: Yes Advance Directives Date on File: 11/12/21 service: No Current occupational status: retired Meds Allergies Allergy/AdvReac Type Severity Reaction Status Date / Time allopurinol [Allopurinol] Allergy Severe HIVES, rash Verified 02/06/24 11:20 oxycodone [Oxycodone] AdvReac Intermediate NAUSEA & Verified 02/06/24 11:20 VOMITING Home Medications ?Medication ?Instructions ?Recorded ?Confirmed ?Last Taken ?Type amlodipine 5 mg tablet 1 tab PO DAILY 11/11/21 07/10/24 Unknown History cholecalciferol (vitamin D3) 10 10 mcg PO DAILY 11/11/21 11/11/21 Unknown History mcg (400 unit) capsule (Vitamin D3) multivitamin 1 tab PO DAILY 11/11/21 07/10/24 Unknown History omeprazole 20 mg capsule,delayed 1 cap PO DAILY 11/11/21 07/10/24 Unknown History release pravastatin 20 mg tablet 1 tab PO DAILY 11/11/21 07/10/24 Unknown History amlodipine 2.5 mg tablet 2.5 mg PO DAILY 02/06/24 07/10/24 Unknown History febuxostat 40 mg tablet 40 mg PO DAILY 02/06/24 07/10/24 Unknown History Exam Height,Weight and Vital Signs: Height 5 ft 9 in Weight 89.811 kg Vital Signs Temp Pulse Resp BP Pulse Ox O2 Del Method 07/12/24 09:47 97.8 F 81 16 151/85 H 96 Room Air Airway Mallampati Class: II TM Dist: >3cm Neck ROM: Full Partial: Upper and Lower Loose/Missing/Broken Teeth: Yes (Partials top and bottom. Denies broken or loose teeth) Heart: RRR Lungs: CTAB Assessment and Plan Assessment Anesthesia Assessment: Anesthesia Plan Discussed and Chart Reviewed Final Anesthetic Review Family History of Problems with Anesthesia: No History of Problems with Anesthesia: No NPO: Yes ASA Class: III Final Preanesthetic Review: No Changes in Pt Med Stat, Meds/Allgs Chart Reviewed, Consent Obtained/Reviewed and Anes Risks/Benef Reviewed Patient Risk: Intermediate Procedure Risk: Low Assessment/Block/Sedation in SS: Assess/Block/Sedation-SS Anesthetic Plan Anesthetic Plan: TIVA Disposition: Standard PACU
[2024-07-12 09:47] VITALS: BP 151/85; PULSE 81; RESP 16; TEMP 36.6; O2SAT 96
[2024-07-12] MEDS: Lactated Ringers 1,000 ML 100 ML IVCONT (10:08)
--- NOTE | 2024-07-12 10:23 | MHC.SHP ---
Pre-Procedural Eval Section A - 24 Hr Update-Section A only Date of Service: 07/12/24 Section B - Complete if H&P > 30 days Chief Complaint: Personal history of polyps, fam hx of advanced vic Details of Present Illness: PMH: Aortic aneurysm GERD (gastroesophageal reflux disease) Hypertension BPH (benign prostatic hyperplasia) Surgical History History of esophagogastroduodenoscopy (EGD) Hx of colonoscopy No pertinent past surgical history Present Medications: see Short Stay Collaborative assessment Allergies: Allergies Allergy/AdvReac Type Severity Reaction Status Date / Time allopurinol [Allopurinol] Allergy Severe HIVES, rash Verified 02/06/24 11:20 oxycodone [Oxycodone] AdvReac Intermediate NAUSEA & Verified 02/06/24 11:20 VOMITING Review of Systems Review of Systems Comment: Ten point ROS negative Exam Exam Comment: Gen appear: No acute distress HEENT: no icterus Chest: No overt resp distress Abd: soft, nontender, nondistended Psych: Stable affect, answering questions appropriately Neuro: A/Ox3 noted to move all extremities spontaneously Ext: no peripheral edema Plan Diagnosis/Plan: Unchanged I have reviewed the history and physical and performed a pertinent physical examination on my patient. No changes have occurred unless specified. Time Spent With Patient Time: Total time managing care of this patient today ____ minutes.
--- NOTE | 2024-07-12 12:22 | P.OPN-COLO_ITS ---
Colonoscopy Operative Note Operative Note Date of Service: 07/12/24 Narrative: Procedure: Colonoscopy Indication: Personal hx of colon polyps Endoscopist: Casi Meza MD Anesthesia Provider: Dr Philomena Blancas Anesthesia type: MAC Instrument: Olympus [id number] and [id number] Consent: Indication, risks vs benefits, and alternatives were discussed with the patient who gave written informed consent to proceed. EKG, pulse, pulse oximetry and blood pressure were monitored throughout the procedure. Please see anesthesi a flowsheet. Procedure: The patient was brought to the procedure room and placed in the left lateral decubitus position. IV medications were administered by the anesthesia provider in attendance. A digital rectal exam was performed which was normal. A distal attachment cap was affixed to the tip of the colonoscope which was then inserted through the anus and advanced through the colon to the cecum at 80 cm. Appendiceal orifice and ileocecal valve were identified. Mucosa was carefully examined under high definition white light as the instrument was slowly withdraw n in a retrograde panoramic fashion. Retroflexion was performed in ascending colon and rectum. The procedure was somewhat difficult and the EMR of cecal polyp required change to adult colonoscopy for better positioning. There were no immediate obvious complications. The quality of the prep was BBPS: 3+2+3 = adequate Withdrawal time minutes. Limitations: High polyp burden Findings: Mucosa: Normal to cecum and terminal ileum. Protruding lesions: * 1 laterally spreading polyp of size 15 mm in cecum right adjacent to appendiceal orifice. This was injected with 2 cc of epinephrine and then lifted with Eleview. Piece meal hot snare polypectomy was perfomed. The polyp was completely removed and retrieved. An endoclip was placed at the polypectomy site to prevent post-polypectomy bleeding. * 3 sessile polyp of size 2-4 mm in cecum. Cold snare polypectomy was performed. The polyps were completely removed and retrieved. * 3 sessile polyp of size 3-6 mm in ascending colon. Cold snare polypectomy was performed. The polyps were completely removed and retrieved. * 5 sessile and 2 semi-pedunculated polyp of size 3-8 mm in transverse colon. Cold snare polypectomy was performed. The polyps were completely removed and retrieved. * 2 sessile polyp of size 4-5 mm in descending colon. Cold snare polypectomy was performed. The polyp was completely removed and retrieved. * 1 sessile and 1 semi pedunculated polyp of size 3-8 mm in sigmoid colon. Cold snare polypectomy was performed. The polyp were completely removed but NOT retrieved. * Medium internal hemorrhoids without stigmata of recent bleeding. Excavated lesions: * Severe diverticulosis of left sided colon. Impression: 1. Normal colon mucosa 2. Total of 17 polyps removed including EMR in cecum 3. Hemorrhoids 4. Diverticulosis Recommendations: - Follow path results. - Repeat colonoscopy in 1 year due to high burden of polyps. - Consider using abd binder and starting with adult scope at next procedure.
[2024-07-12 12:30] VITALS: BP 113/65; PULSE 71; RESP 15; TEMP 36.1; O2SAT 87
[2024-07-12 12:45] VITALS: BP 126/74; PULSE 74; RESP 16; O2SAT 95
== END 2024-07-12 13:29 | disposition home or self-care (01) ==
PROVIDERS: PCP Internal Medicine; Visit Provider Internal Medicine
PROC: 0DJD8ZZ Inspection of Lower Intestinal Tract, Via Natural or Artificial Opening Endoscopic (ICD-10-PCS; CPT 45378; principal; 2024-07-12 11:30)
DX: Z12.11 Encounter for screening for malignant neoplasm of colon (principal); Z86.0101 Personal history of adenomatous and serrated colon polyps; Z83.719 Family history of colon polyps, unspecified; D12.0 Benign neoplasm of cecum; D12.2 Benign neoplasm of ascending colon; D12.3 Benign neoplasm of transverse colon; D12.4 Benign neoplasm of descending colon; K57.30 Diverticulosis of large intestine without perforation or abscess without bleeding; K64.8 Other hemorrhoids; K21.9 Gastro-esophageal reflux disease without esophagitis; I10 Essential (primary) hypertension; I71.21 Aneurysm of the ascending aorta, without rupture; N40.0 Benign prostatic hyperplasia without lower urinary tract symptoms; Z79.899 Other long term (current) drug therapy; Z88.8 Allergy status to other drugs, medicaments and biological substances; Z88.5 Allergy status to narcotic agent; Z87.891 Personal history of nicotine dependence
CPT/HCPCS: 45385; 45381; 88305; J0171; J2003; J2704

== ENCOUNTER → 2024-07-12 09:15 | Outpatient (BNV) | payer SELFPAY | PROVIDERS: PCP Internal Medicine; Visit Provider Internal Medicine | DX: Z12.11 Encounter for screening for malignant neoplasm of colon (principal); Z86.0101 Personal history of adenomatous and serrated colon polyps; D12.3 Benign neoplasm of transverse colon; D12.0 Benign neoplasm of cecum | CPT/HCPCS: 45381; 45385 ==

== ENCOUNTER → 2024-08-29 13:38 | Outpatient (BNVA) | payer MEDICARE, SELFPAY | PROVIDERS: PCP Internal Medicine; Visit Provider Internal Medicine | DX: Z13.89 Encounter for screening for other disorder (principal) ==

== ENCOUNTER → 2024-08-29 13:38 | Outpatient (BNVA) | payer SELFPAY | PROVIDERS: PCP Internal Medicine; Visit Provider Internal Medicine ==